=== PATIENT | female | born 1945 | race Caucasian/White ===

== ENCOUNTER → 2016-11-16 | Outpatient (CLI) | payer OTHER ==
[~2016-11-16] MED LIST: ASPCH81X PO; DTRSR4 PO; FLUO20CA35 PO; FLUO40CA8 PO; FURO-85 PO; LOSA25TA18 PO; MAGN400T6 PO; METO-551 PO; METO50TA16 PO; NTRGSL/4 UT; OMEP40CA PO; OXYC-57 PO; POTA10CA28 PO; SIMV40TA2 PO; WARF2TAB PO; ZNT/150 PO
== END | disposition home or self-care (01) ==
LOC: C.RDSM 13:52
PROVIDERS: ATTEND Physical Medicine & Rehabilitation Sports Medicine
DX: M16.0 Bilateral primary osteoarthritis of hip (principal)

== ENCOUNTER → 2017-06-25 | Outpatient (CLI) | payer OTHER ==
[~2017-06-25] MED LIST changes: -OXYC-57 PO; -WARF2TAB PO
--- NOTE | 2017-06-25 11:35 | DIAGNOSTIC IMAGING REPORT ---
C-SPINE ROUTINE 4 OR 5 VIEWS CLINICAL HISTORY: Neck pain. Cervical disc degeneration at C4-C5 level. COMPARISON STUDY: No previous studies for comparison. FINDINGS: There is 3 mm of anterolisthesis of C3 on C4. There is reversal of the normal cervical lordosis. No fracture or suspicious lesion is present. There is moderate to marked disc space scarring at C5-C6 with osteophytosis. Moderate multilevel facet arthrosis is present. Severe narrowing of the right C3-C4 neural foramen is noted. There is moderate bony narrowing of numerous additional bilateral neural foramen. IMPRESSION: 1. No acute cervical spine fracture. 2. Severe degenerative disc disease at C5-C6 with moderate degenerative disc disease at C4-C5 and C6-C7. 3. 3 mm anterolisthesis of C3 on C4 with reversal normal cervical lordosis. 4. Severe narrowing of the right C3-C4 neural foramen. Electronically signed by: Meño Louis M.D. 06/25/2017 11:34 AM Dictated Date/Time: 06/25/2017 11:29 AM
== END | disposition home or self-care (01) ==
LOC: C.RAD 10:53
PROVIDERS: ATTEND Physical Medicine & Rehabilitation
DX: M50.321 Other cervical disc degeneration at C4-C5 level (principal); M50.323 Other cervical disc degeneration at C6-C7 level; M50.31 Other cervical disc degeneration, high cervical region

== ENCOUNTER → 2017-07-09 | Outpatient (CLI) | payer OTHER ==
--- NOTE | 2017-07-09 11:38 | DIAGNOSTIC IMAGING REPORT ---
CERVICAL SPINE MRI HISTORY: CERVICAL SPONDYLOSIS TECHNIQUE: Multiplanar multisequence MRI of the cervical spine was performed without the use of contrast. COMPARISON STUDY: Cervical spine 06/25/2017. FINDINGS: Slight reversal of the normal lordotic curvature. There is 2 mm of anterolisthesis of C3 on C4, unchanged. Moderate disc space narrowing at C4-C5 and C6-C7. Severe disc space narrowing at C5-C6. There are endplate osteophytes within the lower cervical spine. The visualized posterior fossa is unremarkable. The cervical spinal cord demonstrates a normal signal intensity. Prevertebral soft tissues and the C1-C2 interval are intact. No fractures identified. Mild to moderate facet degenerative changes within the mid to lower cervical spine. C2-C3: No significant central canal or neural foraminal narrowing. C3-C4: No central canal narrowing. Moderate right neural foraminal narrowing due to the facet and uncovertebral hypertrophy. C4-C5: Broad-based posterior disc bulge which abuts and slightly deforms the anterior cord. Moderate to severe bilateral neural foraminal narrowing. C5-C6: Broad-based posterior disc bulge which abuts and slightly deforms the anterior cord. Severe right and moderate to severe left neural foraminal narrowing. C6-C7: Small broad-based posterior disc bulge with a small left paracentral focal disc protrusion. This abuts and slightly deforms the left anterior cord. Mild to moderate bilateral neural foraminal narrowing. C7-T1: Tiny broad-based posterior disc bulge without significant central canal or neural foraminal narrowing. IMPRESSION: 1. Multilevel cervical spondylosis as described above most pronounced at the C4-C5, C5-C6, and C6-C7 levels. 2. Multilevel bilateral neural foraminal narrowing most pronounced at the C5-C6 level. 3. Slight reversal of normal lordotic curvature. 4. There is 2 mm of anterolisthesis of C3 on C4. This is likely due to long-standing degenerative change. Electronically signed by: Long Paul M.D. 07/09/2017 11:36 AM Dictated Date/Time: 07/09/2017 11:28 AM
== END | disposition home or self-care (01) ==
LOC: C.MRIBC 09:51
PROVIDERS: ATTEND Physical Medicine & Rehabilitation
DX: M47.892 Other spondylosis, cervical region (principal); M43.12 Spondylolisthesis, cervical region

== ENCOUNTER → 2017-09-13 | Outpatient (CLI) | payer OTHER ==
--- NOTE | 2017-09-13 13:18 | DIAGNOSTIC IMAGING REPORT ---
PELVIS BILATERAL HIP 2 HISTORY: 72 years-old Female B/L HIP PAIN acute bilateral hip pain. Prior right hip arthroplasty COMPARISON: Pelvis and right hip radiographs 11/16/2016 TECHNIQUE: AP view of the pelvis with AP views of the bilateral hips FINDINGS: Pelvic ring appears intact. Advanced discogenic degenerative changes of the imaged lumbar spine. Right hip arthroplasty noted without evidence of hardware complication. Moderate left hip arthritis. No acute fracture or dislocation. IMPRESSION: 1. No acute fracture or dislocation. 2. Right hip arthroplasty noted without evidence of hardware complication. 3. Moderate left hip arthritis. The above report was generated using voice recognition software. It may contain grammatical, syntax or spelling errors. Electronically signed by: Rancho Cho M.D. 09/13/2017 1:17 PM Dictated Date/Time: 09/13/2017 1:16 PM
== END | disposition home or self-care (01) ==
LOC: C.RDSM 11:53
PROVIDERS: ATTEND Physician Assistant
DX: M16.12 Unilateral primary osteoarthritis, left hip (principal); Z96.641 Presence of right artificial hip joint

== ENCOUNTER 2024-08-27 05:21 | Inpatient (IN) ==
--- NOTE | 2024-07-18 15:40 | PAT Medication Instructions ---
Medication Instructions Date of Service July 18, 2024 Home Medications aspirin 81 mg tablet,delayed release (Wade Low Dose Aspirin) 81 mg PO HS furosemide 20 mg tablet 20 mg PO QAM magnesium oxide 400 mg PO HS metoprolol tartrate 50 mg tablet 50 mg PO HS nitroglycerin 0.4 mg sublingual tablet 1 tab sublingual UD PRN Angina potassium chloride 10 mEq capsule,extended release 10 meq PO QAM fluoxetine 20 mg capsule (Prozac) 20 mg PO QAM cetirizine 10 mg tablet (Zyrtec) 10 mg PO QAM diphenhydramine HCl 25 mg capsule (Benadryl) 25 mg PO HS duloxetine 20 mg capsule,delayed release sprinkle 20 mg PO QAM famotidine 20 mg tablet (Pepcid) 20 mg PO BID omega-3 fatty acids 1,200 mg PO HS rosuvastatin 20 mg tablet 20 mg PO HS vitamin B complex 1 cap PO QAM acetaminophen 500 mg tablet (Tylenol Extra Strength) 1,000 mg PO BID PRN Pain aspirin-caffeine 400 mg-32 mg tablet (Anacin) 2 tab PO DAILY PRN Pain coenzyme Q10 100 mg capsule (CoQ-10) 100 mg PO QAM eplerenone 25 mg tablet 25 mg PO QAM losartan 100 mg tablet 100 mg PO QAM metoprolol tartrate 50 mg tablet 75 mg PO QAM omeprazole 20 mg capsule,delayed release 20 mg PO QAM perfluorohexyloctane (PF) 100 % eye drops (Miebo (PF)) 1 drp ophthalmic (eye) BID Continue as directed nitroglycerin 0.4 mg sublingual tablet 1 tab sublingual UD PRN Angina (if needed) ASK your surgeon for instructions aspirin-caffeine 400 mg-32 mg tablet (Anacin) 2 tab PO DAILY PRN Pain STOP taking 2 weeks before surgery omega-3 fatty acids 1,200 mg PO HS coenzyme Q10 100 mg capsule (CoQ-10) 100 mg PO QAM DO NOT take the morning of surgery furosemide 20 mg tablet 20 mg PO QAM potassium chloride 10 mEq capsule,extended release 10 meq PO QAM cetirizine 10 mg tablet (Zyrtec) 10 mg PO QAM vitamin B complex 1 cap PO QAM eplerenone 25 mg tablet 25 mg PO QAM losartan 100 mg tablet 100 mg PO QAM Take morning of surgery With a small sip of water, OTHERWISE NOTHING TO EAT OR DRINK AFTER MIDNIGHT: fluoxetine 20 mg capsule (Prozac) 20 mg PO QAM duloxetine 20 mg capsule,delayed release sprinkle 20 mg PO QAM famotidine 20 mg tablet (Pepcid) 20 mg PO BID acetaminophen 500 mg tablet (Tylenol Extra Strength) 1,000 mg PO BID PRN Pain (if needed) metoprolol tartrate 50 mg tablet 75 mg PO QAM omeprazole 20 mg capsule,delayed release 20 mg PO QAM perfluorohexyloctane (PF) 100 % eye drops (Miebo (PF)) 1 drp ophthalmic (eye) BID Take evening before surgery aspirin 81 mg tablet,delayed release (Wade Low Dose Aspirin) 81 mg PO HS (unless surgeon directed otherwise) magnesium oxide 400 mg PO HS metoprolol tartrate 50 mg tablet 50 mg PO HS diphenhydramine HCl 25 mg capsule (Benadryl) 25 mg PO HS famotidine 20 mg tablet (Pepcid) 20 mg PO BID rosuvastatin 20 mg tablet 20 mg PO HS acetaminophen 500 mg tablet (Tylenol Extra Strength) 1,000 mg PO BID PRN Pain (if needed) perfluorohexyloctane (PF) 100 % eye drops (Miebo (PF)) 1 drp ophthalmic (eye) BID Other Notes If you have any questions please call us at [phone] or [phone] or [phone] or [phone]
--- NOTE | 2024-07-23 12:43 | Anesthesiology Consultation ---
Date of Service July 23, 2024 Assessment & Plan (1) Encounter for pre-operative examination: - Infectious disease screening: Per assessment on 07/23/24: No known recent infectious disease contacts or current infectious disease symptoms. - Outpatient joint assessment: Pt currently scheduled for inpatient pathway. If surgeon requests review for outpatient joint pathway, patient is not recommended candidate for outpatient joint program from anesthesia standpoint based on available information. - Cardiology visit (07/08/24): "Patient describes stable cardiac signs and symptoms, however with regards to preoperative risk stratification, her activity has been limited due to her orthopedic constraints and therefore it was difficult to assess whether she has any angina. She was ongoing therapeutic benefit from her spine surgery that took place in 2021. Prior to consideration of hip replacement, recommend proceeding with a dobutamine stress echocardiogram for further risk stratification. She had a nonischemic response to do dobutamine stress in 2021." > Cardiology addendum: "patient is stable from a Cardiology perspective to proceed with Orthopedic Surgery without further cardiac testing with an estimated low risk of perioperative cardiac complication. She was should remain on her cardiac medications including metoprolol without missed doses.. would recommend minimizing time of aspirin, ideally, would proceed without interruption in her aspirin or perhaps only hold it on the day of surgery given her history of remote percutaneous coronary intervention." - Cardiology note (07/23/24): "Stress test findings stable, okay from a cardiac perspective to proceed with Orthopedic Surgery without further cardiac testing." - Patient acceptable risk for surgery pending surgeon-ordered PCP preop evaluation ([facility], appt 08/06). Chart Review Chart Review: Patient seen in Pre Admission Testing Teaching & Discussion Pre-Anesthesia Teaching/Discussion Notes: Instructed NPO after midnight before surgery,except medications with 15 cc of water. Medication instructions provided according to the PAT guidelines. History Surgery Operation Date: 08/27/24 09:00 Proposed Procedures p Left Total Hip Arthroplasty, Possible Dual Mobility, Possible Cemented Femur - Abhijit Cantrell MD Height/Weight Height: 5 ft 2 in Weight: 95.9 kg Allergies Allergy/AdvReac Type Severity Reaction Status Date / Time oxycodone Allergy Severe Itching Verified 07/18/24 11:42 bacitracin Allergy Mild Rash Verified 07/18/24 11:42 cortisone Allergy Mild Elevated Verified 07/23/24 13:42 BP, panic lisinopril Allergy Mild Cough Verified 07/23/24 13:42 neomycin Allergy Mild Rash Verified 07/18/24 11:42 [From Neosporin ([id number])] polymyxin B Allergy Mild Rash Verified 07/18/24 11:42 [From Neosporin ([id number])] povidone-iodine Allergy Mild Skin Verified 07/23/24 13:42 irritation dobutamine Allergy Itching Verified 07/23/24 15:56 (after DSE) ADHESIVE TAPE AND BANDAIDS Allergy Severe Skin Uncoded 07/23/24 13:42 irritation (with long term care administrator use) Medications Home Medications Medication Instructions Recorded Confirmed Last Taken aspirin 81 mg tablet,delayed 81 mg PO HS 06/24/18 07/18/24 10/22/23 release (Wade Low Dose Aspirin) furosemide 20 mg tablet 20 mg PO [facility] 06/24/18 07/18/24 10/23/23 magnesium oxide 400 mg PO 06/24/18 07/18/24 10/22/23 metoprolol tartrate 50 mg tablet 50 mg PO 06/24/18 07/18/24 10/22/23 nitroglycerin 0.4 mg sublingual 1 tab sublingual UD PRN Angina 06/24/18 07/18/24 Unknown tablet potassium chloride 10 mEq 10 meq PO [facility] 06/24/18 07/18/24 10/23/23 capsule,extended release fluoxetine 20 mg capsule (Prozac) 20 mg PO [facility] 02/14/19 07/18/24 10/24/23 06:40 cetirizine 10 mg tablet (Zyrtec) 10 mg PO [facility] 10/22/23 07/18/24 10/23/23 diphenhydramine HCl 25 mg capsule 25 mg PO 10/22/23 07/18/24 10/22/23 (Benadryl) duloxetine 20 mg capsule,delayed 20 mg PO [facility] 10/22/23 07/18/24 10/17/23 06:40 release sprinkle famotidine 20 mg tablet (Pepcid) 20 mg PO BID 10/22/23 07/18/24 10/24/23 06:40 omega-3 fatty acids 1,200 mg PO 10/22/23 07/18/24 10/22/23 rosuvastatin 20 mg tablet 20 mg PO 10/22/23 07/18/24 10/22/23 vitamin B complex 1 cap PO QAM 10/22/23 07/18/24 10/23/23 acetaminophen 500 mg tablet 1,000 mg PO BID PRN Pain 07/18/24 07/18/24 Unknown (Tylenol Extra Strength) aspirin-caffeine 400 mg-32 mg 2 tab PO DAILY PRN Pain 07/18/24 07/18/24 Unknown tablet (Anacin) coenzyme Q10 100 mg capsule 100 mg PO QAM 07/18/24 07/18/24 Unknown (CoQ-10) eplerenone 25 mg tablet 25 mg PO QAM 07/18/24 07/18/24 Unknown losartan 100 mg tablet 100 mg PO QAM 07/18/24 07/18/24 Unknown metoprolol tartrate 50 mg tablet 75 mg PO QAM 07/18/24 07/18/24 Unknown omeprazole 20 mg capsule,delayed 20 mg PO QAM 07/18/24 07/18/24 Unknown release perfluorohexyloctane (PF) 100 % 1 drp ophthalmic (eye) BID 07/18/24 07/18/24 Unknown eye drops (Miebo (PF)) Past Medical History Medical History Anxiety CAD (coronary artery disease) Stent (2003) Degenerative joint disease Depression Diastolic HF (heart failure) Follows with Dr. Goodrich Esophageal dysmotility Hx dilation in past Frequent PVCs GERD (gastroesophageal reflux disease) H/O gastric ulcer 1966, no current issues Hearing deficit History of COVID-19 ~2020: mild flu-like symptoms > resolved Hx of melanoma of skin Left hip with surgical removal Hx-TIA (transient ischemic attack) Hx multiple TIAs (most recent early 2022) Hyperlipidemia Hypertension Incontinence of urine Chronic Osteoarthritis Sleep apnea CPAP (compliant) Spinal stenosis Spondylitis Exercise / Class Metabolic Activity III < 4 Walking/Shop/Light housework (uses cane) Past Family History Family History Sister Family history of diabetes mellitus 2 SISTERS Family/Other Family history of diabetes mellitus MATERNAL AUNTS Other No family history of adverse response to anesthesia Past Surgical History Surgical History H/O arthroscopy of left knee H/O bilateral salpingo-oophorectomy H/O cystoscopy H/O mastoidectomy H/O melanoma excision H/O total hysterectomy History of cardiac cath Multiple, most recent 2003 History of cataract surgery History of cholecystectomy History of colonoscopy History of dilatation and curettage History of esophageal dilatation History of esophagogastroduodenoscopy (EGD) History of heart artery stent 2004 > stent x1 History of lumbar fusion History of tonsillectomy and adenoidectomy Hx of wisdom tooth extraction Nausea and vomiting after administration of anesthetic agent Status post right hip replacement Past Anesthesia History No Hx of Anesthesia Complications and No Family Hx of Anesthesia Complications History of PONV History of PONV and Hx of Motion Sickness (Rare) Social History Smoking Status: Former smoker Do You Dip or Chew Tobacco: No Smoking End Date: Quit Hx Alcohol Use: No Hx Substance Use: No substance use type: does not use Review of Systems Occasional palpitations. r/t known hx of PVCs (flares with stress). Patient denies chest pain, shortness of breath, fever, chills, cough, wheezing. Physical Exam Vital Signs BP 136/74 P 72 TEMP 98.1 SP02 98%RA RESP 16 Physical Full cervical extension range of motion. Full TMJ range of motion. TMD 2.5 finger breaths (small chin) Mallampati Score I Dentition: intact, + crowns (sides) Lungs: clear throughout to auscultation Cardiac: regular rate and rhythm, no murmurs noted Spine: normal Carotid arteries: negative bruit Extremities: no LE edema Lab Results Anesthesia Preop Results Results Anesthesia Widget: WBC 5.37 K/ul (4.8-10.8) 07/23/24 Hgb 14.6 g/dl (12.0-16.0) 07/23/24 Hct 43.6 % (37.0-47.0) 07/23/24 Plt 199 K/uL (130-400) 07/23/24 Na 141 mmol/L (136-145) 07/23/24 K 4.6 mmol/L (3.5-5.1) 07/23/24 Cl 104 mmol/L (98-107) 07/23/24 CO2 31 mmol/L (21-32) 07/23/24 BUN 32 mg/dl (6-23) H 07/23/24 Creat 1.00 mg/dl (0.6-1.2) 07/23/24 Glucose Level 124 mg/dl (70-99(Fasting)) H 07/23/24 PT 10.5 Seconds (9.0-12.0) 07/23/24 PTT 25 Seconds (21-31) 07/23/24 INR 1.0 (0.9-1.1) 07/23/24 Urine Color Dark Yellow 07/23/24 Urine Appearance Clear (Clear) 07/23/24 Urine pH 5.0 (4.5-7.5) 07/23/24 Urine Specific [place] 1.017 (1.000-1.030) 07/23/24 Urine Protein Negative (Negative) 07/23/24 Urine Glucose (UA) Negative (Negative) 07/23/24 Urine Ketones Negative (Negative) 07/23/24 Urine Blood Negative (Negative) 07/23/24 Urine Nitrite Positive (Negative) A 07/23/24 Urine Bilirubin Negative (Negative) 07/23/24 Urine Urobilinogen Negative (Negative) 07/23/24 Urine Leukocyte Esterase 2+ (Negative) H 07/23/24 Urine WBC (Auto) 11-20 /hpf (0-5) H 07/23/24 Urine RBC (Auto) 0-2 /hpf (0-2) 07/23/24 Urine Hyaline Casts (Auto) 0-2 /lpf (0-2) 07/23/24 Urine Epithelial Cells (Auto) 0-2 /hpf (0-2) 07/23/24 Urine Bacteria (Auto) 3+ (None Seen) H 07/23/24 Blood Type A Positive 07/23/24 Antibody Screen NEGATIVE 07/23/24 Testing Laboratory Results [place] with surgeon's office aware of abnormal UA* Electrocardiogram Date: 07/08/24 SR with first degree AVB at 62bpm. "Otherwise normal ECG" No significant change compared to 12/28/2021 per slab worker comparison. Chest X-Ray Date: 07/23/24 FINDINGS: Cardiac silhouette is upper limits of normal in size. Coronary arterial stenting. No pneumothorax, pleural effusion, airspace consolidation or pulmonary edema. Mild mid thoracic dextroscoliosis. Right upper quadrant surgica l clips. IMPRESSION: No acute process. Stress Test Date: 07/21/24 No echocardiographic evidence of stress-induced ischemia at 81% Of the maximal, age-predicted heart rate.The low heart rate response to stress reduces the sensitivity of this test for the detection of coronary artery disease or ischemia. There was attenuated heart rate response to exercise likely related to medications. Rest study: LVEF 55-59%. Mildly increased concentric LV wall thickness. Grade 1 diastolic dysfunction. Mild AV sclerosis. Mild TR. No evidence of pulmonary hypertension. Borderline enlarged ascending aorta, 3.7 cm.
[2024-08-27] MEDS: LR 500ML BOLUS, THEN 15ML/HR IV SCH (06:17)
[2024-08-27] MEDS: LR 60ML/HR IV SCH (06:17)
[2024-08-27] MEDS ORDERED: ROPIVACAINE 0.5% 5 MG/ML 30 ML VIAL ONE (06:22)
--- NOTE | 2024-08-27 06:30 | History & Physical Bridge Note ---
Date of Service August 27, 2024 History & Physical Bridge Note I have examined the patient, reviewed the History & Physical and in the interval since the performance of the History & Physical I have noted the following changes of clinical significance: consent and site verified. reviewed meds and risks . no changes noted
[2024-08-27] MEDS ORDERED: MIDAZOLAM HCL 1 MG/ML 2ML VIAL ONE (06:38)
[2024-08-27] MEDS ORDERED: fentaNYL citrate PF 100 MCG/2 ML VIAL ONE (06:38)
[2024-08-27] MEDS ORDERED: fentaNYL citrate PF 100 MCG/2 ML VIAL IV PRN (06:39)
[2024-08-27] MEDS ORDERED: HYDROmorphone INJ 1 MG/ML SYRINGE IV PRN (06:39)
[2024-08-27] MEDS ORDERED: ePHEDrine sulfate 50 MG/ML AMP IV PRN (06:39)
[2024-08-27] MEDS ORDERED: ATROPINE SULFATE 0.1 MG/ML 10ML SYR IV PRN (06:39)
[2024-08-27] MEDS ORDERED: ePHEDrine sulfate 50 MG/ML AMP ONE (06:40)
[2024-08-27] MEDS: TRANEXAMIC ACID 1,000 MG **IV Pre-op IV SCH (06:43)
[2024-08-27] MEDS ORDERED: PROPOFOL IV EMULSION 10 MG/ML 20 ML VIAL IV ONE ×3 (06:45→08:01)
[2024-08-27] MEDS: ceFAZolin 2000MG 2,000 MG/15 ML SYR IV SCH ×2 (06:57→14:13)
[2024-08-27] MEDS ORDERED: PHENYLEPHRINE 100MCG/ML 5ML SYR ONE ×2 (07:20→08:18)
[2024-08-27] MEDS ORDERED: WATER, STERILE FOR INJ 10 ML VIAL ONE (07:20)
[2024-08-27] MEDS ORDERED: DEXAMETHASONE SOD INJ 4 MG/ML VIAL ONE (07:22)
[2024-08-27] MEDS ORDERED: ONDANSETRON INJ 2 MG/ML 2 ML VIAL ONE (07:22)
[2024-08-27] MEDS: ORTHO JOINT ANESTHETIC ONE (07:46)
[2024-08-27] MEDS: TRANEXAMIC ACID 1,000 MG **IV Intra-op IV SCH (08:28)
[2024-08-27] MEDS: ROPIV 0.5% 246mg, Ketorolac 30mg, EPINEPHrine 0.5mg in NSS INFIL SCH (08:28)
--- NOTE | 2024-08-27 08:58 | Post Operative Brief Note ---
Immediate Post Op Note Date of Surgery August 27, 2024 Pre & Post Diagnosis Operation Date: 08/27/24 07:00 <No data on this case meets the specified criteria> Osteoarthritis left hip pre and postop diagnosis same I identified the patient and participated in the time-out.: Yes Procedure Operation Date: 08/27/24 07:00 <No data on this case meets the specified criteria> Noncemented left total replacement Surgeon Abhijit Cantrell MD Locomotive Engineer Diesel Yonny/Bao Estimated Blood Loss 150 Findings Consistent with Post-Op Diagnosis Severe osteoarthritis extreme BMI Fluids See anesthesia report Complications None
--- NOTE | 2024-08-27 09:03 | Operative Report ---
Post Operative Report Pre & Post Diagnosis Operation Date: 08/27/24 07:00 <No data on this case meets the specified criteria> Pre and postop diagnosis same as osteoarthritis left hip with large BMI patient should use a modifier 25 for the extreme size of the patient I identified the patient and participated in the time-out.: Yes Procedure Operation Date: 08/27/24 07:00 <No data on this case meets the specified criteria> Noncemented left total replacement Surgeon Abhijit Cantrell MD Stud Setter Yonny/Bao Estimated Blood Loss 150 Findings Consistent with Post-Op Diagnosis Severe disease high BMI Fluids See anesthesia report Specimens Bone pathology Drains None Complications None Indications Severe pain for years x-rays are marked osteoarthritis left hip Description of Procedure After the patient was appropriate notified site verified consent verified antibiotics confirmed as being given patient was carefully positioned in the right lateral decubitus position. Again this is a very large patient with high BMI and moderate appropriate modifier for this should be utilized. This required both the fellow and the PA for appropriate retraction based on her size. Posterior process of the hip was then made. The largest retractors were required just for the subcutaneous tissue. Fascia was then opened and then retractors placed carefully protect the sciatic nerve. Double been retractors then placed over the femoral neck proximally and the Cobra distally and the capsule and short external rotators were appropriately released. They were p reserved. The hip was then dislocated carefully. Femoral neck was then resected. Leg was then placed in extension and neutral rotation anterior [id number] retractor placed inferior retractor placed after the capsule was teed little bit more care taken to protect the nerves. Labrum was then excised the serial reaming was then carried up to 48 and 48 cup impacted in appropriate anteversion inclination. Trial liner was seated after 6.5 x 25 screw was placed with excellent purchase. Digitally 1-1 could not feel the drill bit over the depth gauge when this was performed. The cuff fixation was excellent. The femur was then flexed and internally rotated and the proximal femur prepared with the ammonia box operator canal finder lateralizing rasp and serial broaching up to a size 2 trial reduction with a +5 was excellent. Leg lengths were equal. The hip range of motion was stable in all planes. This included flexion internal rotation to 90 degrees and 45 degrees of respectively. The hip was then checked for leg lengths and everything was good the hip was then dislocated all terminating trial limits were removed the wound was then irrigated with Pulsavac elevated Betadine and then cleaned out again with Pulsavac the whole limb later seated permanent liner seated permanent stem and head seated the hip was reduced and was excellent stability in all planes leg lengths were excellent. Wound was then irrigated with Pulsavac 1 final time and the short external rotators and capsule closed with #2 Vicryl the fascia with #2 Vicryl deep fat with #2 Vicryl superficial fat with 2-0 Vicryl the skin with clips and retention sutures were placed based again on the patient's size with 0 Prolene. Patient will have a Prevena placed tomorrow after the dressing is changed. EBL was 150 cc cryst alloid per anesthesia bone pathology pending. Summary of implants size 48 acetabular shell sector cup 25 x 6.5 screw dome cover 32 x 48 neutral liner 2 standard AC Tis stem 32+5 ceramic head. Enthuseuy J&J implants. I attest to the content of the Intraoperative Record and any orders documented therein. Any exceptions are noted below.
[2024-08-27] MEDS ORDERED: ONDANSETRON INJ 2 MG/ML 2 ML VIAL IV PRN (09:04)
[2024-08-27] MEDS ORDERED: METOCLOPRAMIDE HCL INJ 5 MG/ML 2 ML VIAL IV PRN (09:04)
[2024-08-27] MEDS ORDERED: bisacodyL 10 MG SUPP PR PRN (09:04)
[2024-08-27] MEDS ORDERED: NALOXONE HCL 0.4 MG/1 ML VIAL/CARP IV PRN (09:04)
[2024-08-27] MEDS ORDERED: diphenhydrAMINE 50 MG/ML VIAL IV PRN (09:04)
[2024-08-27] MEDS ORDERED: HYDROmorphone INJ 0.5 MG/0.5 ML SYR IV PRN (09:04)
[2024-08-27] MEDS ORDERED: MAGNESIUM HYDROXIDE SUSP 30 ML UDC PO PRN (09:04)
[2024-08-27] MEDS ORDERED: VANCOMYCIN CONSULT ACTIVE PRN (09:04)
[2024-08-27] MEDS ORDERED: ALUMINUM/MAGNESIUM SUSP 30 ML UDC PO PRN (09:04)
--- NOTE | 2024-08-27 09:04 | Orthopedic Progress Note ---
Date of Service August 27, 2024 Orthopedic Progress Note Patient underwent left total replacement. She tolerated procedure well. She denies chest pain shortness of breath fever chills nausea vomiting or headache. X-ray pending. Family contacted. Continue with care pathway. Get out of bed later today based on her high risk for comorbidities such as DVT PE and pneumonia. This was discussed with her preop she states she understands.
--- NOTE | 2024-08-27 09:04 | Operative Report ---
Post Operative Report Pre & Post Diagnosis Operation Date: 08/27/24 07:00 Pre-Op Diagnosis: Left Hip Osteoarthritis Post-Op Diagnosis: Left Hip Osteoarthritis I identified the patient and participated in the time-out.: Yes Procedure Operation Date: 08/27/24 07:00 Actual Procedures p Left Total Hip Arthroplasty, Uncemented(Left) - Abhijit Cantrell MD Surgeon Abhijit Cantrell MD Lacing Presser Yonny/Bao Estimated Blood Loss 150 Findings Consistent with Post-Op Diagnosis Specimens femoral head Description of Procedure I was present during the entire case assisting with positioning, prepping, draping, wound retraction, wound closure and dressing application. Fellow also present. I served as an extra set of hands during the case. Please see Dr. Cantrell procedure note for specifics of the case. I attest to the content of the Intraoperative Record and any orders documented therein. Any exceptions are noted below.
--- NOTE | 2024-08-27 09:05 | Discharge Summary ---
Date of Service August 28, 2024 Admission HPI Per Admitting Provider Severe left hip pain osteoarthritis left hip Principal Diagnosis Osteoarthritis left hip Discharge Data Allergies Allergy/AdvReac Type Severity Reaction Status Date / Time adhesive tape Allergy Severe Unknown Verified 08/27/24 06:01 oxycodone Allergy Severe Itching Verified 08/27/24 06:01 bacitracin Allergy Mild Rash Verified 08/27/24 06:01 neomycin Allergy Mild Rash Verified 08/27/24 06:01 [From Neosporin ([id number])] polymyxin B Allergy Mild Rash Verified 08/27/24 06:01 [From Neosporin ([id number])] cortisone AdvReac Mild Elevated Verified 08/27/24 06:01 BP, panic lisinopril AdvReac Mild Cough Verified 08/27/24 06:01 Vaccinations None Consultations None Procedures Performed Operation Date: 08/27/24 07:00 <No data on this case meets the specified criteria> Noncemented left total replacement Ordered Studies Bone pathology x-rays Hospital Course (1) History of left hip replacement: Care pathway for total replacement with discharge tomorrow if she does well overnight with home services PT and nursing. Total Time Total Time Spent Total Time Spent (In Minutes): 5 Discharge Plan Discharge Items Patient Disposition: Home - Home Health Services Reason For Visit: Left Hip Osteoarthritis Discharge Diagnosis: Osteoarthritis left hip status post left total replacement Activity: Per Instructions section Lifting: Wait until after follow-up appointment Bathing: Keep incision dry Sexual Activity: Wait until after follow-up appointment Exercise/Sports: Wait until after follow-up appointment Driving/Machine Use: No driving until cleared by Dr. Cantrell Weightbearing: Full weightbearing Non-emergency contact: Surgeon Call non-emergency contact if: you have any medication questions, your pain is not controlled, your temperature is above 101, your wound has increased redness, your wound has increased drainage and your wound pain has increased Follow-up/Referrals: Saman Almanza, [Primary Care Provider] - Diet: Heart Healthy Addtl Attending Provider Instructions: New Medicine: * You will likely be taking one or more of these medicines: 1. Tramadol - Take, as directed, when you need it, every four to six hours to control your pain. 2. Iron Sulfate - Take 1x each day for the month after surgery to help you replace the blood lost during surgery. 3. Eliquis - Thins your blood to lessen the chance of forming a blood clot. * The most common side effects of pain medicine and iron are nausea and constipation. If nausea or constipation is too much of a problem or if you have any questions about your new medicines or doses, call [facility] at . We will try to help you manage these issues. "VERY IMPORTANT TO READ AND REVIEW" Blood Clots and Blood Thinning Medicine: * You are given Eliquis during the immediate post-operative period to lessen the risk of blood clots forming in your legs and/or lungs. It is usually given for 4 weeks after surgery. Pain: * The immediate post-operative period after hip replacement surgery is often quite painful. * You are given a prescription for pain medicine. You should take it, as directed, when you need it, especially before physical therapy and before going to bed. Pain that interferes with sleep is very common and can last several months. * You will likely need pain medicine for the first two to four weeks. It will not stop all of the pain. The pain will lessen and as you feel better, you may change to milder pain medicine such as Tylenol. * The most common side effects of pain medicine are nausea and constipation, so don't take more than you need. Physical Therapy: * Follow the "Hip Precautions Instructions." * In some cases, the social welfare clerk at the hospital will arrange to have a therapist come to your house for the first couple of weeks to help you learn these skills. * You need to practice on your own or with the help of a family member as needed. * When you learn these skills, most of the therapy can be done on your own. Home Exercise: * You were shown a series of exercises in the hospital. Do these exercises three to four times each day including the exercises you were shown in physical therapy. Walking: * Get up and walk several times each day. For the first four weeks, try not to stand or walk for more than one hour at a time. If you do stand or walk for more than one hour, you will not hurt anything, but your leg will likely swell. * As you feel comfortable, you may change from the walker or crutches to a cane and then to independent walking. SELF CARE INSTRUCTIONS AFTER TOTAL HIP REPLACEMENT Until the incision and soft tissues around your hip have healed, there is a possibility that the hip prosthesis could dislocate. A. Observe the following precautions to prevent dislocation: 1. Don't bend your hip greater than 90 degrees. 2. Avoid crossing your legs or ankles while standing or lying. 3. Sit with your feet placed 6 inches apart. 4. When sitting, keep your knees below your hips. Sit on a firm surface, avoid deep, soft chairs and couches. Use an elevated toilet seat in the bathroom. 5. Don't bend over at the waist. Use a long handled shoehorn and a sock aid to help you put on your shoes and socks. A electroneurodiagnostic technician can help you molded goods spot picker objects that are too high or too low to reach. 6. Keep car riding to a minimum for at least one month after surgery. B. Your balance may be shaky for a while. Use crutches or a walker until directed by your doctor. C. Use hand rails when walking on stairs. D. Wear low heeled shoes with non-slip soles. E. Be sure that your floors are free of things that could trip you - throw rugs, electrical cords, small objects. Avoid wet and waxed floors, especially with crutches and canes. F. Try to walk several times a day with rest periods between. G. Continue with all the exercises taught to you in the hospital. Again, make walking a part of your daily routine. VERY IMPORTANT TO READ AND REVIEW A. Take Eliquis (blood thinning medication) as directed by your doctor. B. There are a few signs you need to watch for after you are home. If you notice any of the followin. Increased severe hip pain. Some pain is expected especially when you exercise. 2. Increased swelling in your leg or knee; pain or swelling of the calf muscle in either lower leg. 3. Any fluid drainage from the incision. 4. Shortness of breath or chest pain. TEDs/Elastic Stockings: * The white elastic stockings help limit swelling and prevent blood clots from forming in your legs. The more you wear them, the more they work. * Wear them for six weeks. Prevention of Infection: * Take antibiotics one hour before any dental cleaning, dental work, urological procedure, gastrointestinal procedure or any invasive surgery in order to prevent your new joint from getting infected. * You may get the antibiotics from the doctor performing the procedure or we will call in a prescription to the pharmacy of your choice. Call the office for a prescription at least 2 days prior to your appointment. Diet: * You may return to previous diet. Things to Watch For: * Drainage from the incision site that occurs more than one week after your surgery. * Severely increased leg pain or swelling. * Increased redness at the incision site. * Fever above 101 degrees Fahrenheit. * Unusual chest pain or shortness of breath. * Unusual pain or burning with urination. MEDICATIONS: * Please take your prescriptions as instructed at your pre-op appointment a nd/or see medication discharge instructions listed above. * If concerns develop, call your physician's office at . SPECIAL CARE INSTRUCTIONS: * Ice/Elevate as instructed. * Keep dressing clean, dry, intact. * Your surgical extremity may be discolored due to prepping agents used on the skin. A bluish-green tint is a normal variant and should not cause alarm. Call your doctor at [phone] if: * Temperature above 101 degrees * Pain not relieved by pain medicine ordered * There is increased drainage or redness from any incision * You have any unanswered questions, problems or concerns. FOLLOW UP VISIT: * If not already scheduled, please call the office at to schedule a follow-up appointment. Pending Studies at Discharge: Yes Studies:: bone pathology Stand-Alone Forms: [employer], Smoking Cessation Medications and DC Order Prescriptions: No Action potassium chloride 10 mEq Capsule, Extended Release 10 meq PO QAM aspirin [Wade Low Dose Aspirin] 81 mg Tablet,Delayed Release (Dr/Ec) 81 mg PO HS metoprolol tartrate 50 mg Tablet 50 mg PO HS nitroglycerin 0.4 mg Tablet, Sublingual 1 tab Sublingual UD PRN (Reason: Angina) furosemide 20 mg Tablet 20 mg PO QAM magnesium oxide 400 mg Capsule 400 mg PO HS fluoxetine [Prozac] 20 mg Capsule 20 mg PO QAM famotidine [Pepcid] 20 mg Tablet 20 mg PO BID cetirizine [Zyrtec] 10 mg Tablet 10 mg PO QAM diphenhydramine HCl [Benadryl] 25 mg Capsule 25 mg PO HS vitamin B complex Capsule 1 cap PO QAM omega-3 fatty acids Capsule 1,200 mg PO HS rosuvastatin 20 mg Tablet 20 mg PO HS duloxetine 20 mg Capsule, Delayed Rel Sprinkle 20 mg PO QAM metoprolol tartrate 50 mg Tablet 75 mg PO QAM omeprazole 20 mg Capsule,Delayed Release(Dr/Ec) 20 mg PO QAM losartan 100 mg Tablet 100 mg PO QAM eplerenone [Inspra] 25 mg Tablet 25 mg PO QAM coenzyme Q10 [CoQ-10] 100 mg Capsule 100 mg PO QAM Miebo (PF) 100 % Drops 1 drp OPHTHALMIC (EYE) BID acetaminophen [Tylenol Extra Strength] 500 mg Tablet 1,000 mg PO BID PRN (Reason: Pain) Anacin 400-32 mg Tablet 2 tab PO DAILY PRN (Reason: Pain) Discharge Orders: Discharge Order (Routine); Ordered 08/28/24 Ordered By: Abhijit Cantrell Admission Data Admit Date/Time: 08/27/24 09:04 Attending Provider: Abhijit Cantrell Admit Provider: Abhijit Cantrell Primary Care Provider: Saman Almanza
[2024-08-27] MEDS ORDERED: ASPIRIN CAFFEINE PO PRN (09:08)
[2024-08-27] MEDS ORDERED: NITROGLYCERIN SL 0.4 MG/TAB TAB SL PRN (09:08)
[2024-08-27] MEDS ORDERED: ACETAMINOPHEN 500 MG TAB PO PRN (09:08)
--- NOTE | 2024-08-27 09:09 | Operative Report ---
Post Operative Report Pre & Post Diagnosis Operation Date: 08/27/24 07:00 Pre-Op Diagnosis: Left Hip Osteoarthritis Post-Op Diagnosis: Left Hip Osteoarthritis I identified the patient and participated in the time-out.: Yes Procedure Operation Date: 08/27/24 07:00 Actual Procedures p Left Total Hip Arthroplasty, Uncemented(Left) - Abhijit Cantrell MD Surgeon Abhijit Cantrell MD Relay Repairer Yonny/Bao Estimated Blood Loss 150 Findings Consistent with Post-Op Diagnosis Specimens Femoral head Description of Procedure The patient was brought to the operative suite where she underwent anesthesia. She was positioned in the right lateral decubitus position. Left lower extremity was prepped and draped in the usual sterile fashion. A surgical timeout was performed. Patient underwent a left total hip arthroplasty, please see Dr. Cantrell's operative report for full details. I was present assisted with patient positioning, limb positioning, soft tissue retraction, hardware placement, wound closure, postoperative dressing placement. Patient was awakened and taken to the recovery room in stable condition. I attest to the content of the Intraoperative Record and any orders documented therein. Any exceptions are noted below.
--- NOTE | 2024-08-27 09:26 | XRay Report ---
XR pelvis 1-2V routine CLINICAL HISTORY: S/P L HALLIE COMPARISON: Left hip radiographs July 14, 2024. FINDINGS: Alignment of the total left hip arthroplasty is anatomic. There is no periprosthetic fract ure or unexpected radiopaque foreign bodies. There is an acetabular screw and skin franck. Right hip arthroplasty is intact. IMPRESSION: Expected findings following total left hip arthroplasty. ACT 112: Negative or not required by law. Electronically signed by: Meño Louis M.D. 08/27/2024 9:25 AM
[2024-08-27] MEDS: ONDANSETRON INJ 2 MG/ML 2 ML VIAL IV PRN (09:30)
[2024-08-27] MEDS: PROMETHAZINE HCL 6.25 MG in SODIUM CHLORIDE 0.9% 50 ML IV PRN (10:06)
[2024-08-27] MEDS: PROMETHAZINE HCL INJ 25 MG/ML 1 ML VIAL ONE (11:02)
[2024-08-27] MEDS: KETOROLAC TROMETHAMINE 15 MG/ML VIAL IV SCH (12:22)
[2024-08-27] MEDS: VANCOMYCIN HCL 1,500 MG in SODIUM CHLORIDE 0.9% 500 ML IV ONE (12:22)
[2024-08-27] MEDS: EPLERENONE 25MG PO SCH (14:11)
[2024-08-27] MEDS: ACETAMINOPHEN 500 MG TAB PO SCH (14:13)
[2024-08-27] MEDS: [UNRECOGNIZED DRUG - OTHER] OP SCH (14:13)
[2024-08-27] MEDS: traMADol HCL 50 MG TABLET PO PRN (15:42)
[2024-08-27 20:02] VITALS: TEMP 98.2
[2024-08-27] MEDS: ROSUVASTATIN CALCIUM 20 MG TAB PO SCH (20:08)
[2024-08-27] MEDS: METOPROLOL TARTRATE 50 MG TAB PO SCH (20:08)
[2024-08-27] MEDS: DOCUSATE SODIUM 100 MG CAP PO SCH (20:08)
[2024-08-27] MEDS: FAMOTIDINE 20 MG TAB PO SCH (20:08)
[2024-08-27] MEDS: ASPIRIN 81 MG ECTAB PO SCH (20:08)
[2024-08-27] MEDS: MAGNESIUM OXIDE 400 MG TAB PO SCH (20:08)
[2024-08-27] MEDS: SENNA 8.6 MG TAB PO SCH (20:09)
[2024-08-27] MEDS: OMEGA-3 (PURIFIED FISH OIL) 1 GM CAP PO SCH (20:09)
[2024-08-27] MEDS ORDERED: diphenhydrAMINE Capsule 25 MG CAP PO SCH (21:00)
--- OUTSIDE RECORDS SUMMARY | 2024-08-27 21:00 | External Medical Summary | Summary of Care ---
Author Name Unknown Organization [facility] Address [address] [place] [address] Phone [phone] Care Team Providers Care Electronics Mechanic Name Role Phone Saman Almanza DO Primary Care Provider [phone] Reason for Visit * Reason Comments eRx-Medication Refill Encounter Details Date Type Department Care Team (Late st Contact Info) Description 08/12/2024 Refill Cardiology, [facility] [address] [place] [address] Jaspal Finley, [address] [place] [place] [phone] HTN, goal below 140/90; Diastolic dysfunction; Coronary artery disease involving [place] coronary artery of [place] heart without angina pectoris Allergies Active Allergy Reactions Criticality Noted Date Comments Adhesive Tape Itching Low 01/02/2001 Irritate skin Bacitracin Itching Low 01/02/2001 Irritate skin Cortisone Hypertension 05/26/2016 Diazepam Itching 02/17/2022 Severe systemic itch Dobutamine Itching 07/21/2024 Neosporin Itching Low 01/02/2001 Irritate Skin Oxycodone Itching 02/17/2022 Severe systemic itch Polymyxin B Itching Low 11/01/2023 Lisinopril Cough 11/12/2014 documented as of this encounter (statuses as of 08/14/2024) Medications Medication Sig Dispensed Refills Start Date End Date Status NITROGLYCERIN 0.4 MG SL SUBLIndications:Pal pitations,Coronary atherosclerosis of [place] coronary artery 1 every 5 min as needed with chest pain up to 3 doses in 15 minutes 20 Tab 3 2 Active ASPIRIN 81 MG PO TABS Take 1 Tablet by mouth at bedtime. Active CPAP every night at bedtime. Active [place]-3 1000 MG Oral Capsule Take by mouth. Active Acetaminophen 500 MG Oral Tablet (Tylenol) Take 1 Tablet by mouth. 2 Active ZyrTEC Allergy 10 MG Oral Capsule (Cetirizine HCl) Take 1 Capsule by mouth in the morning. Active CoQ10 100 MG Oral Capsule Take by mouth . Active B Complex 50 Oral Tablet Take by mouth. Active diphenhydrAMINE HCl 25 MG Oral Tablet Take 1 Tablet by mouth every 6 hours as needed for Itching. Active Hydrocortisone 2.5 % External Ointment Apply to groin 1-2 times daily as needed for flares 60 g 2 2 Active Furosemide 20 MG Oral Tablet (Lasix)Indications: HTN, goal below 140/90,Dyslipidemia , goal LDL below 70,NOVA (dyspnea on exertion),Preoperat lalita cardiovascular examination,Coronar y artery disease involving [place] coronary artery of [place] heart without angina pectoris One tablet by mouth daily 90 Tablet 3 3 Active Magnesium Oxide 400 240 MG Oral Packet (Magnesium Oxide) Take 400 mg by mouth every night at bedtime. Active Omeprazole 20 MG Oral Tablet Delayed Release Take 1 Tablet by mouth in the morning. 30 Tablet 12 4 Active Ciclopirox 8 % External Solution Apply over nail and surrounding skin. Apply daily over previous coat. After seven (7) days, may remove with alcohol and continue cycle. 6.6 mL 5 4 Active Rosuvastatin Calcium 20 MG Oral Tablet (Crestor)Indication s:Dyslipidemia, goal LDL below 100 Take 1 Tablet by mouth in the morning. 90 Tablet 3 4 Active Metoprolol Tartrate 50 MG Oral Tablet (Lopressor)Indicati ons:Palpitations,HT N, goal below 140/90 TAKE ONE AND ONE-HALF TABLET BY MOUTH EVERY MORNING AND TAKE ONE TABLET EVERY EVENING 225 Tablet 3 4 Active Amoxicillin 500 MG Oral Capsule (Amoxil) TAKE 4 CAPSULE BY MOUTH NEEDED FOR OTHER ( DENTAL VISIT). 4 Capsule 4 Active Famotidine 20 MG Oral Tablet (Pepcid)Indications :Gastroesophageal reflux disease without esophagitis TAKE ONE TABLET BY MOUTH IN THE MORNING AND ONE TABLET BEFORE BEDTIME 180 Tablet 2 4 Active Losartan Potassium 100 MG Oral Tablet (Cozaar)Indications :HTN, goal below 140/90 TAKE 1 TABLET BY MOUTH EVERY MORNING 90 Tablet 2 4 Active FLUoxetine HCl 20 MG Oral Capsule (PROzac)Indications :Moderate episode of recurrent major depressive disorder (HCC) TAKE 1 CAPSULE BY MOUTH ONCE DAILY 90 Capsule 2 4 Active DULoxetine HCl 20 MG Oral Capsule Delayed Release Particles (Cymbalta)Indicatio ns:Generalized osteoarthritis of multiple sites TAKE 1 CAPSULE BY MOUTH EVERY MORNING. DO NOT CUT, CRUSH, OR CHEW. 30 Capsule 5 4 Active Eplerenone 25 MG Oral Tablet (Inspra)Indications :Diastolic dysfunction,HTN, goal below 140/90 Take 1 Tablet by mouth in the morning. 90 Tablet 1 4 Active Miebo 1.338 GM/ML Ophthalmic Solution Instill 1 Drop into both eyes 3 times a day as needed. 4 Active Potassium Chloride ER 10 MEQ Oral Tablet Extended ReleaseIndications: HTN, goal below 140/90,Diastolic dysfunction,Coronar y artery disease involving [place] coronary artery of [place] heart without angina pectoris Take 1 Tablet by mouth in the morning. With food. 90 Tablet 3 4 Active Potassium Chloride ER 10 MEQ Oral Tablet Extended ReleaseIndications: HTN, goal below 140/90,Diastolic dysfunction,Coronar y artery disease involving [place] coronary artery of [place] heart without angina pectoris Take 1 Tablet by mouth in the morning. With food. 90 Tablet 4 08/14/20 24 Discontinued documented as of this encounter (statuses as of 08/14/2024) Active Problems Problem Noted Date Diagnosed Date History of melanoma in situ 08/22/2021 Moderate episode of recurrent major depressive d isorder 02/05/2019 Cervicalgia 05/16/2018 Obesity, Class II, BMI 35-39.9, isolated (see ac tual BMI) 02/07/2018 History of melanoma 10/30/2017 Edema 02/10/2015 Diastolic dysfunction 04/27/2014 GERD (gastroesophageal reflux disease) 4 Dyslipidemia, goal LDL below 70 09/04/2012 Cerebrovascular disease 04/25/2012 DAVID on CPAP 05/19/2010 Overview: APAP 8-12 [facility] HTN, GOAL BELOW 140/90 08/26/2009 Overview: Modified per HTN protocol #16. CORONARY ATHEROSCLER. 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 documented as of this encounter (statuses as of 08/14/2024) Resolved Problems Problem Noted Date Diagnosed Date Resolved Date Hypertensive kidney disease, stage III 08/05/2018 02/05/2019 Kidney disease, chronic, sta ge III (GFR 30-59 ml/min) 02/26/2018 08/23/2018 Overview: Per CKD protocol #1 ADVANCE DIRECTIVE INFORMATION 08/01/2016 08/11/2024 Overview: Yes, Patient instructed to provide copy of advance directive for provider to review and to be scanned into Electronic Medical Record Diverticulosis of large inte mike without hemorrhage 11/26/2015 10/30/2017 Diastolic HF (heart failure) 04/08/2014 09/24/2016 Diastolic HF (heart failure) 04/08/2014 09/24/2016 Chest pain 02/04/2014 08/18/2015 Kidney disease, chronic, sta ge III (GFR 30-59 ml/min) 12/01/2013 12/24/2014 Overview: Per CKD protocol #1 Pre-operative cardiovascular examination 06/25/2013 02/04/2014 Derange posterior horn later al meniscus left knee due to old injury 06/25/2013 10/30/2017 ANNA/ARB CONTRAINDICATED: BP at goal on Atenolol 01/31/2007 03/14/2010 Palpitations 03/21/2004 05/23/2017 HYPERTENSION NOS(aka HTN) 03/21/2004 Overview: Modified per HTN protocol #16. melanoma--lt lat thigh 06/24/2002 10/30/2017 dysplastic compound nevus--lower back 06/24/2002 10/30/2017 seborrheic keratosis--sternu m , left arm 07/0806/24/2002 10/30/2017 Other acne 06/24/2002 10/30/2017 documented as of this encounter (statuses as of 08/14/2024) Immunizations Name Administration Dates Next Due COVID-19 mRNA, LNP-s, No Pre serve, 2-Dose Series (Moderna) 12/11/2020,11/10/2020 COVID-19, MRNA-LNP, PF, 30 M CG/0.3 mL, 12 YRS AND ABOVE, IM (PFIZER-Comirnaty) 08/27/2023 COVID-19, mRNA, LNP-s, PF, B ooster, 100mcg/0.5mg (Moderna) 08/01/2021 Covid-19, Mrna, Lnp-s, Pf, B ivalent, 30 Mcg, IM, 12 yrs and above (Pfizer) 09/12/2022 H1N1 2009 Influenza, IM 01/10/2010 Pneumococcal Conjugate Vacc, 13 Valent (Prevnar) 08/14/2016 Pneumococcal Polysaccharide PPV23 (Pneumovax) 07/19/2012 RSV Vac., Bivalent, Perfusio n F, Pf,0.5 Ml (Abrysvo) 08/06/2023 Season Influenza, Quad, PF, Adjuvanted, 65+ Yrs, IM (FLUAD) 08/06/2020 Seasonal Influenza Vac., MDV , IM, 0.5 mL (Fluzone) 07/07/2015,07/03/2014,06/20/2013,06/08,06/12/2011,07/10/2010,08/06/20 09,07/29/2008,08/19/2007 Seasonal Influenza, High Dos e, Trivalent, PF, IM (Fluzone HD) 06/24/2024 Seasonal Influenza, PF, 6 M & above, IM , (FluLaval or Fluzone) 06/17/2019,07/05/2018,07/19/2017 Seasonal Influenza, Quadriva lent Hd (Fluzone Hd) 07/03/2023,07/10/2022,08/02/2021 Seasonal Influenza, Quadriva lent, No Preserve, IM 08/14/2016 08/14/2016 TD, Preservative Free 02/26/2018 TDAP, Age 7 and older, IM (Adacel) 11/29/2007 Varicella Zoster Vaccine (Adult) 09/22/2009 Zoster Vaccine Recombinant (Shingrix) 11/03/2019 ,08/06/2019 documented as of this encounter Social History Tobacco Use Types Packs/Day Years Used Date Smoking Tobacco: Never Smokeless Tobacco: Never Alcohol Use Standard Drinks/Week Comments No 0 (1 standard drink = 0.6 oz pur e alcohol) PHQ-2 Answer Date Recorded PHQ Adult Total Score 0 04/07/2022 Hunger Vital Sign Answer Date Recorded Within the past 12 months, y ou worried that your food would run out before you got the money to buy more. Never true 07/23/20 24 Within the past 12 months, t he food you bought just didn't last and you didn't have money to get more. Never true 07/23/2024 Childcare Answer Date Recorded Do you feel overwhelmed with taking care of a child, family member or friend? No 07/23/2024 Does your family need help f inding childcare? (Household - for ages 0-17 years) Not on file 07/23/2024 Clothing Answer Date Recorded Have you been unable to get clothing when it was really needed? No 07/23/2024 Is your family able to get c lothes or diapers when needed? (Household - for ages 0-17 years) Not on file 07/23/2024 Personal Safety Answer Date Recorded Do you feel unsafe or have concerns for your saf ety? No 07/23/2024 Do you have concerns for you r family's safety? (Household - for ages 0-17 years) Not on file 07/23/2024 Utilities Answer Date Recorded Do you have trouble paying y our heating, water, or electric bill? No 07/23/2024 Is your family able to pay t he heat, water, or electric bill? (Household - for ages 0-17 years) Not on file 07/23/2024 Does your family have access to good internet? (Household - for ages 0-17 years) Not on file 07/23/2024 Employment Status Answer Date Recorded Are you unemployed or without regular income? No 07/23/2024 Does the household have a re gular source of income? (Household - for ages 0-17 years) Not on file 07/23/2024 Social Connections Answer Date Recorded How often do you feel lonely or isolated from those around you? Sometimes 07/23/2024 Financial Resource Strain Answer Date R ecorded Do you have any trouble payi ng for your medications, or do you think you might in the future? No 07/23/2024 Does your family have troubl e paying for medicine? (Household - for ages 0-17 years) Not on file 07/23/2024 Transportation Needs Answer Date Record ed READ ONLY Do you have troubl e getting a ride to medical visits or work? Never True 07/23/2024 Does your family have a hard time getting a ride to doctors visits? (Household - for ages 0-17 years) Not on file 07/23/2024 Has lack of transportation k ept you from medical appointments, meetings, work, or from getting things needed for daily living? Check all that apply. No 07/23/2024 Do you (or your family) have trouble finding or paying for a ride (transportation)? (Household - for ages 0-17 years) Not on file 07/23/2024 Housing Stability Answer Date Recorded Do you currently live in a s helter or have no steady place to sleep at night? No 07/23/2024 READ ONLY Do you think you a re at risk of becoming homeless? No 07/23/2024 Does your family worry about paying for your home or becoming homeless? (Household - for ages 0-17 years) Not on file 1 Are you homeless or worried that you might be in the future? No 07/23/2024 Are you (or your family) shandra eless or worried that you might be in the future? (Household - for ages 0-17 years) Not on file Food Insecurity Answer Date Recorded Do you need food for this week? No 07/23/2024 Are you able to get enough f ood for your family? (Household - for ages 0-17 years) Not on file 07/23/2024 Does your family need food t his week? (Household - for ages 0-17 years) Not on file 07/23/2024 Do you always have enough fo od for your family? (Household - for ages 0-17 years) Not on file 07/23/2024 Sex and Gender Information Value Date Recorded Sex Assigned at Female 09/25/2022 8:02 AM EST Gender Identity Female 09/25/2022 8:02 AM EST Sexual Orientation Straight 09/25/2022 8: 02 AM EST Job Start Date Occupation Industry Not on file Not on file Not on file documented as of this encounter Miscellaneous Notes * Telephone Encounter - Maryjo Campbell RPh - 08/14/2024 10:58 AM ESTSigned Prescriptions: Disp Refills Potassium Chloride ER 10 MEQ Oral Tablet E*90 Tab*3 Sig: Take 1 Tablet by mouth in the morning. With food.Authorizing Provider: JASPAL FINLEY User: MARYJO CAMPBELL documented in this encounter Plan of Treatment Upcoming Encounters Date Type Department Care Team (Late st Contact Info) Description 10/14/2024 11:20 AM EST Office Visit Dermatology [facility] [place] [address] [place] [phone] Alison Burnham PA-C [address] [place] [phone] 01/09/2025 4:00 PM EDT Office Visit Family Practice [facility] [place] [address] [place] [place] [phone] Saman Almanza, DO [address] [place] [address] 07/23/2025 1:30 PM EDT Office Visit Cardiology, [facility] [address] [place] [address] Jaspal Finley, [address] [place] [id number] Scheduled Procedures Name Priority Associated Diagnoses Date/Ti me COLONOSCOPY FLEXIBLE PROXIMA L DIAGNOSTIC Recall History of colonic polyps Health Maintenance Due Date Last Done Comments Adult Wellness Visit 06/08/2018 06/08/2017 Depression Monitoring 04/07/2023 04/07/2022 COVID-19 Vaccine ( season) 2024 08/27/2023, 09/12/2022, 08/01/2021, Additional history exists GFR 03/04/2025 03/04/2024, 02/05, 10/18/2023, Additional history exists Albumin/Creatinine Ratio 10/16/2025 10/16/2022 DTap/Tdap Vaccines (3 - Td or Tdap) 02/27/2028 02/26/2018, 11/29/2007 Colonoscopy 10/24/2028 10/24/2023, 01/06, 01/18/2021, Additional history exists DXA Scan 07/15/2029 07/15/2024, 05/10, 05/31/2015, Additional history exists Fecal Occult Blood Test Discontinued 09/07/1999 Pneumococcal Vaccine: 65+ Years Completed 08/14/2016, 07/19/2012, 07/04/2004 Zoster Vaccines Completed 11/03/2019, 07/10, 09/22/2009 RETIRED - COLONOSCOPY-EVERY 5 YRS AGES 18-100 Discontinued 10/24/2023, 01/18/2021, 01/18/2021, Additional history exists Influenza Vaccine (FLU shot) Completed 06/24/2024, 07/03/2023, 07/10/2022, Additional history exists HPV (Gardasil) Vaccine Aged Out No lo nger eligible based on patient's age to complete this topic Hepatitis B Vaccine Aged Out No longe r eligible based on patient's age to complete this topic MENINGOCOCCAL (MENACTRA/MENVEO) Aged Out No longer eligible based on patient's age to complete this topic documented as of this encounter Medical Devices Implanted Type Area Booster Operator Device Identifier Shelf Expiration Date Model / Serial / Lot Lens Intraoc 23.0 - [id number] - [id number] Implanted:Qty: 1 on 09/24/2020 by Tuan Doyle MD at [facility] Left: Eye [employer] 01/05/2025 [id number] / [id number] / [id number] Lens Intraoc 22.5 - [id number] - [id number] Implanted:Qty: 1 on 10/19/2020 by Tuan Doyle MD at OR [facility] Right: Eye [employer] LOMB 04/06/2025 [id number] / [id number] / documented as of this encounter Visit Diagnoses Diagnosis HTN, goal below 140/90 Unspecified essential hypertension Diastolic dysfunction Heart disease, unspecified Coronary artery disease involving [place] coronary artery of [place] heart without angina pectoris documented in this encounter Advance Directives * Full Code (Latest Code Status on File) Date Activated Date Inactivated Comments 07/17/2016 3:47 PM 07/17/2016 10:33 PM This orde r reflects the patients wishes and were consensually agreed upon. Care Teams Electronics Mechanic Relationship Specialty Start Date End Date Saman Almanza DO [address] [place] [address] PCP - General Family Medicine 05/01/18 documented as of this encounter
--- OUTSIDE RECORDS SUMMARY | 2024-08-27 21:00 | External Medical Summary | Summary of Care ---
Author Name Unknown Organization [facility] Address [address] [place] [address] Phone [phone] Care Team Providers Care System Archive Analyst Name Role Phone Saman Almanza DO Primary Care Provider Reason for Visit * Reason Comments Physical-Exam Encounter Details Date Type Department Care Team (Late st Contact Info) Description 08/08/2024 11:00 AM EDT Office Visit [facility] [address] [facility] [place] [address] Saman Almanza DO [facility] [address] Pre-operative general physical examination*; Atherosclerosis of [place] coronary artery of [place] heart without angina pectoris; HTN, GOAL BELOW 140/90; Dyslipidemia, goal LDL below 70; Moderate episode of recurrent major depressive disorder (HCC) Allergies Active Allergy Reactions Criticality Noted Date Comments Adhesive Tape Itching Low 01/02/2001 Irritate skin Bacitracin Itching Low 01/02/2001 Irritate skin Cortisone Hypertension 05/26/2016 Diazepam Itching 02/17/2022 Severe systemic itch Dobutamine Itching 07/21/2024 Neosporin Itching Low 01/02/2001 Irritate Skin Oxycodone Itching 02/17/2022 Severe systemic itch Polymyxin B Itching Low 11/01/2023 Lisinopril Cough 11/12/2014 documented as of this encounter (statuses as of 08/08/2024) Medications Medication Sig Dispensed Refills Start Date End Date Status NITROGLYCERIN 0.4 MG SL SUBLIndications:Palpi tations,Coronary atherosclerosis of [place] coronary artery 1 every 5 min as needed with chest pain up to 3 doses in 15 minutes 20 Tab 3 12/27/2011 Active ASPIRIN 81 MG PO TABS Take 1 Tablet by mouth at bedtime. Active CPAP every night at bedtime. Active [place]-3 1000 MG Oral Capsule Take by mouth. Active Acetaminophen 500 MG Oral Tablet (Tylenol) Take 1 Tablet by mouth. 01/28/2022 Active ZyrTEC Allergy 10 MG Oral Capsule [...] as needed for flares 60 g 2 09/27/2022 Active Furosemide 20 MG Oral Tablet (Lasix)Indications:HT N, goal below 140/90,Dyslipidemia, goal LDL below 70,NOVA (dyspnea on exertion),Preoperativ e cardiovascular examination,Coronary artery disease involving [place] coronary artery of [place] heart without angina pectoris One tablet by mouth daily 90 Tablet 3 09/24/2023 Active Magnesium Oxide 400 240 MG Oral Packet (Magnesium Oxide) Take 400 mg by mouth every night at bedtime. Active Omeprazole 20 MG Oral Tablet Delayed Release Take 1 Tablet by mouth in the morning. 30 Tablet 12 11/01/2023 Active Ciclopirox 8 % External Solution Apply over nail and surrounding skin. Apply daily over previous coat. After seven (7) days, may remove with alcohol and continue cycle. 6.6 mL 5 11/27/2023 Active Rosuvastatin Calcium 20 MG Oral Tablet (Crestor)Indications: Dyslipidemia, goal LDL below 100 Take 1 Tablet by mouth in the morning. 90 Tablet 3 12/10/2023 Active Metoprolol Tartrate 50 MG Oral Tablet (Lopressor)Indication s:Palpitations,HTN, goal below 140/90 TAKE ONE AND ONE-HALF TABLET BY MOUTH EVERY MORNING AND TAKE ONE TABLET EVERY EVENING 225 Tablet 3 12/10/2023 Active Amoxicillin 500 MG Oral Capsule (Amoxil) TAKE 4 CAPSULE BY MOUTH NEEDED FOR OTHER ( DENTAL VISIT). 4 Capsule 01/31/2024 Active Famotidine 20 MG Oral Tablet (Pepcid)Indications:G astroesophageal reflux disease without esophagitis TAKE ONE TABLET BY MOUTH IN THE MORNING AND ONE TABLET BEFORE BEDTIME 180 Tablet 2 02/21/2024 Active Losartan Potassium 100 MG Oral Tablet (Cozaar)Indications:H TN, goal below 140/90 TAKE 1 TABLET BY MOUTH EVERY MORNING 90 Tablet 2 02/21/2024 Active FLUoxetine HCl 20 MG Oral Capsule (PROzac)Indications:M oderate episode of recurrent major depressive disorder (HCC) TAKE 1 CAPSULE BY MOUTH ONCE DAILY 90 Capsule 2 04/11/2024 Active DULoxetine HCl 20 MG Oral Capsule Delayed Release Particles (Cymbalta)Indications :Generalized osteoarthritis of multiple sites TAKE 1 CAPSULE BY MOUTH EVERY MORNING. DO NOT CUT, CRUSH, OR CHEW. 30 Capsule 5 05/02/2024 Active Potassium Chloride ER 10 MEQ Oral Tablet Extended ReleaseIndications:HT N, goal below 140/90,Diastolic dysfunction,Coronary artery disease involving [place] coronary artery of marsh[place] heart without angina pectoris Take 1 Tablet by mouth in the morning. With food. 90 Tablet 05/23/2024 Active Eplerenone 25 MG Oral Tablet (Inspra)Indications:D iastolic dysfunction,HTN, goal below 140/90 Take 1 Tablet by mouth in the morning. 90 Tablet 1 06/24/2024 Active Miebo 1.338 GM/ML Ophthalmic Solution Instill 1 Drop into both eyes 3 times a day as needed. 06/17/2024 Active documented as of this encounter (statuses as of 08/08/2024) Active Problems Problem Noted Date Diagnosed Date History of melanoma in situ 08/22/2021 Moderate episode of recurrent major depressive d isorder 02/05/2019 Cervicalgia 05/16/2018 Obesity, Class II, BMI 35-39.9, isolated (see ac tual BMI) 02/07/2018 History of melanoma 10/30/2017 ADVANCE DIRECTIVE INFORMATION 08/01/2016 Overview: Yes, Patient instructed to provide copy of advance directive for provider to review and to be scanned into Electronic Medical Record Edema 02/10/2015 Diastolic dysfunction 04/27/2014 GERD (gastroesophageal reflux disease) 4 Dyslipidemia, goal LDL below 70 09/04/2012 Cerebrovascular disease 04/25/2012 DAVID on CPAP 05/19/2010 Overview: APAP 8-12 cwp [facility] HTN, GOAL BELOW 140/90 08/26/2009 Overview: Modified per HTN protocol #16. CORONARY ATHEROSCLER. 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 documented as of this encounter (statuses as of 08/08/2024) Resolved Problems Problem Noted Date Diagnosed Date Resolved Date Hypertensive kidney disease, stage III 08/05/2018 02/05/2019 Kidney disease, chronic, sta ge III (GFR 30-59 ml/min) 02/26/2018 08/23/2018 Overview: Per CKD protocol #1 Diverticulosis of large inte mike without hemorrhage [...] as of this encounter (statuses as of 08/08/2024) Immunizations Name Administration Dates Next Due COVID-19 mRNA, LNP-s, No Pre serve, 2-Dose Series (Moderna) 12/11/2020,11/10/2020 COVID-19, MRNA-LNP, PF, 30 M CG/0.3 mL, 12 YRS AND ABOVE, IM ([facility] 08/27/2023 COVID-19, mRNA, LNP-s, PF, B ooster, [...] on file documented as of this encounter Last Filed Vital Signs Vital Sign Reading Time Taken Comments Blood Pressure 132/84 08/08/2024 10:53 AM EDT Pulse 61 08/08/2024 10:53 AM EDT Temperature 36.1 C (97 F) 08/08/2024 10:53 AM EDT Respiratory Rate 16 08/08/2024 10:53 AM EDT Oxygen Saturation 97% 08/08/2024 10:53 AM EDT Inhaled Oxygen Concentration - - Weight 92.8 kg (204 lb 9.6 oz) 08/08/2024 10:53 AM EDT Height - - Body Mass Index 36.83 10/18/2023 2:04 PM EST documented in this encounter Progress Notes * Saman Almanza, DO - 08/08/2024 11:15 AM EDT Subjective: Irina Suárez is a 79 year old female. Chief Complaint Patient presents with Physical-Exam HPI: Pt here for a pre-op physical for left hip replacement on 08/27 at [facility] with Dr. Cevallos. Dr. Goodrich has already given her cardiology clearance. Stress ECHO. She had blood work done for pre-op. UTI found and treated. No CP or SOB or palpitations. No unusual bleeding. Some chronic stable issues with swallowing. Fixed prior with no change in symptoms. Has never impacted surgery. No poor rections to anesthesia. HAs a history of allergy to valium. No poor outcomes with prior surgery. She will go on Eliquis after surgery. Blood work reviewed. CBC, INR, and CMP reviewed. 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 OF [place] CORONARY VESSEL HTN, GOAL BELOW 140/90 DAVID on CPAP Cerebrovascular disease Dyslipidemia, goal LDL below 70 GERD (gastroesophageal reflux disease) Diastolic dysfunction Edema History of melanoma Obesity, Class II, BMI 35-39.9, isolated (see actual BMI) Cervicalgia Moderate episode of recurrent major depressive disorder (HCC) History of melanoma in situ Current Outpatient Medications Medication Sig Dispense Refill NITROGLYCERIN 0.4 MG SL SUBL 1 every 5 min as needed with chest pain up to 3 doses in 15 minutes 20Tab 3 ASPIRIN 81 MG PO TABS Take 1 Tablet by mouth at bedtime. CPAP every night at bedtime. [place]-3 1000 MG Oral Capsule Take by mouth. Acetaminophen 500 MG Oral Tablet (Tylenol) Take 1 Tablet by mouth. ZyrTEC Allergy 10 MG Oral Capsule (Cetirizine HCl) Take 1 Capsule by mouth in the morning. CoQ10 100 MG Oral Capsule Take by mouth . B Complex 50 Oral Tablet Take by mouth. diphenhydrAMINE HCl 25 MG Oral Tablet Take 1 Tablet by mouth every 6 hours as needed for Itching. Hydrocortisone 2.5 % External Ointment Apply to groin 1-2 times daily as needed for flares 60 g 2 Furosemide 20 MG Oral Tablet (Lasix) One tablet by mouth daily 90 Tablet 3 Magnesium Oxide 400 240 MG Oral Packet (Magnesium Oxide) Take 400 mg by mouth every night at bedtime. Omeprazole 20 MG Oral Tablet Delayed Release Take 1 Tablet by mouth in the morning. 30 Tablet 12 Ciclopirox 8 % External Solution Apply over nail and surrounding skin. Apply daily over previous coat. After seven (7) days, may remove with alcohol and continue cycle. 6.6 mL 5 Rosuvastatin Calcium 20 MG Oral Tablet (Crestor) Take 1 Tablet by mouth in the morning. 90 Tablet 3 Metoprolol Tartrate 50 MG Oral Tablet (Lopressor) TAKE ONE AND ONE-HALF TABLET BY MOUTH EVERY MORNING AND TAKE ONE TABLET EVERY EVENING 225 Tablet 3 Famotidine 20 MG Oral Tablet (Pepcid) TAKE ONE TABLET BY MOUTH IN THE MORNING AND ONE TABLET BEFOREBEDTIME 180 Tablet 2 Losartan Potassium 100 MG Oral Tablet (Cozaar) TAKE 1 TABLET BY MOUTH EVERY MORNING 90 Tablet 2 FLUoxetine HCl 20 MG Oral Capsule (PROzac) TAKE 1 CAPSULE BY MOUTH ONCE DAILY 90 Capsule 2 DULoxetine HCl 20 MG Oral Capsule Delayed Release Particles (Cymbalta) TAKE 1 CAPSULE BY MOUTH EVERY MORNING. DO NOT CUT, CRUSH, OR CHEW. 30 Capsule 5 Potassium Chloride ER 10 MEQ Oral Tablet Extended Release Take 1 Tablet by mouth in the morning. With food. 90 Tablet 0 Eplerenone 25 MG Oral Tablet (Inspra) Take 1 Tablet by mouth in the morning. 90 Tablet 1 Miebo 1.338 GM/ML Ophthalmic Solution Instill 1 Drop into both eyes 3 times a day as needed. Amoxicillin 500 MG Oral Capsule (Amoxil) TAKE 4 CAPSULE BY MOUTH NEEDED FOR OTHER ( DENTAL VISIT). 4 Capsule 0 No current facility-administered medications for this visit. Review of patient's allergies indicates: Allergen Reactions Cortisone Hypertension Diazepam Itching Severe systemic itch Dobutamine Itching Oxycodone Itching Severe systemic itch Prinivil [Lisinopril] Cough Adhesive Tape Itching Irritate skin Bacitracin Itching Irritate skin Neosporin Itching Irritate Skin Polymyxin B Itching OBJECTIVE: BP 132/84 | Pulse 61 | Temp 36.1 C (97 F) (Tympanic) | Resp 16 | Wt 92.8 kg (204 lb 9.6 oz) | LMP 08/12/2001 | SpO2 97% | BMI 36.83 kg/m | BSA 2.02 m Estimated body mass index is 36.83 kg/m as calculated from the following: Height as of 10/18/23: 1.588 m (5' 2.5"). Weight as of this encounter: 92.8 kg (204 lb 9.6 oz). BP Readings from Last 3 Encounters: 08/08/24 132/84 07/08/24 130/78 06/24/24 136/74 Wt Readings from Last 3 Encounters: 08/08/24 92.8 kg (204 lb 9.6 oz) 07/08/24 95.7 kg (211 lb) 06/24/24 95 kg (209 lb 6.4 oz) ROS: General: No change in weight, No weakness, No fatigue and No fevers, sweats, or chills Head: No significant headache and No recent significant head injury Eyes: No recent significant change in vision, No eye pain, redness, discharge, or excessive tearing, No diplopia and No h/o cataracts or glaucoma Ears: No recent change in hearing, No tinnitus or vertigo, No ear pain and No ear discharge Nose: No h/o frequent colds or sinusitis, No nasal stuffiness, No h/o hay fever and No significant epistaxis Throat/Oropharynx: No teeth or gum problems, No bleeding gums, No tongue complaints, No sore throatand No recent change in voice or hoarseness Neck: No complaint of lumps in neck, No swollen glands, No recent swelling in thyroid area and No significant pain in neck Respiratory: No cough, sputum, or hemoptysis, No wheezing, No shortness of breath and No recent change in breathing Cardiac: No chest pain, No shortness of breath, No dyspnea on exertion, No orthopnea, No paroxysmalnocturnal dyspnea, No edema, No palpitations and No syncope Gastrointestinal: No dysphagia, No significant heartburn, No significant change in appetite, No nausea, vomiting, diarrhea, or constipation, No hematemesis, No blood in stools or black tarry stools, No abdominal bloating or early satiety and No abdominal pain Urinary: No urinary frequency, No dysuria, No hematuria, No urinary urgency, No polyuria, No nocturia, No incontinence, No hesitancy and No sensation of incomplete voiding Musculoskeletal: chronic hip pain Hematologic: No anemia, No easy bruising or abnormal bleeding and No history of transfusion Neurologic: No fainting or blackouts, No seizures, No paralysis or focal weakness, No numbness or tingling, No tremors and No significant problems with memory PHYSICAL EXAM: General: alert, healthy and no distress Head: Normocephalic, No masses, lesions, tenderness or abnormalities Ears: External ears normal, Canals clear, TM's Normal Nose: no mucosal erythema, no mucosal edema, no purulent discharge Oropharynx: no exudate, no erythema, lips, buccal mucosa, and tongue normal and mucous membranes are moist Heart: regular rate & rhythm, no murmurs and no gallops Lungs: chest symmetric with normal AP diameter, no chest deformities noted, no chest wall tenderness, lungs clear to auscultation Abdomen: abdomen soft, non-tender, normal bowel sounds and no masses or organomegaly Extremities: less than 2 second capillary refill, no joint deformities, effusion, or inflammation ASSESSMENT/Plan Pre-operative general physical examination (Primary) Atherosclerosis of marshall coronary artery of marshall heart without angina pectoris HTN, GOAL BELOW 140/90 Dyslipidemia, goal LDL below 70 Moderate episode of recurrent major depressive disorder (HCC) Blood work, urine and stress eCHO reviewed. UTI already treated. PT cleared for surgery with low likelihood of manuel-operative complications. The above was discussed and understanding was expressed. Saman Almanza DO documented in this encounter Nursing Notes * Harper Tavares LPN - 08/08/2024 10:50 AM EDT Irina Suárez presents for pre op physical exam. Medications & HM reviewed. documented in this encounter Plan of Treatment Upcoming Encounters Date Type Department Care Team (Late st Contact Info) Description 10/14/2024 11:20 AM EST Office Visit [facility] [address] [facility] [place] [address] Alison Burnham PA-C [address] [place] [address] 01/09/2025 4:00 PM EDT Office Visit Family Practice [facility] [address] [place] [address] Saman Almanza DO [address] [facility] [place] [address] 07/23/2025 1:30 PM EDT Office Visit Cardiology, [facility] [address] [place] [address] Narayan Goodrich DO [address] [place] [address] Scheduled Procedures Name Priority Associated Diagnoses Date/Ti [...] this encounter Medical Devices Implanted Type Area Finish Machine Tender Device Identifier Shelf Expiration Date Model / Serial / Lot Lens Intraoc 23.0 - [id number] - [id number] Implanted:Qty: 1 on 09/24/2020 by Tuan Doyle MD at OR [facility] Left: Eye [employer]OM[employer] 01/05/2025 [id number] / [id number] / [id number] Lens Intraoc 22.5 - [id number] - [id number] Implanted:Qty: 1 on 10/19/2020 by Tuan Doyle MD at OR [facility] Right: Eye BAUSCH [employer] LOMB 04/06/2025 [id number] / [id number] / documented as of this encounter Visit Diagnoses Diagnosis Pre-operative general physical examination- Primary Other specified pre-operative examination Atherosclerosis of [place] coronary artery of [place]all heart without angina pectoris HTN, GOAL BELOW 140/90 Unspecified essential hypertension Dyslipidemia, goal LDL below 70 Other and unspecified hyperlipidemia Moderate episode of recurrent major depressive disorder (HCC) documented in this encounter Advance Directives * Full Code (Latest Code Status on File) Date Activated Date Inactivated Comments 07/17/2016 3:47 PM 07/17/2016 10:33 PM This orde r reflects the patients wishes and were consensually agreed upon. Care Teams System Archive Analyst Relationship Specialty Start Date End Date Saman Almanza DO [address] [place] [address] PCP - General Family Medicine 05/01/18 documented as of this encounter
--- OUTSIDE RECORDS SUMMARY | 2024-08-27 21:00 | External Medical Summary | Summary of Care ---
Author Name Unknown Organization [facility] Address [address] [place] [address] Phone [phone] Care Team Providers Care Research Test Engine Operator Name Role Phone ArchieSaman Perla BRADSHAW Primary Care Provider [phone] Reason for Visit * Reason Comments Outpatient Testing Encounter Details Date Type Department Care Team (Late st Contact Info) Description 08/04/2024 2:50 PM EDT Laboratory [place] [facility] [address] [place] [id number] [place] [address] [place] [address] Primary osteoarthritis of both hips Allergies Active Allergy Reactions Criticality Noted Date Comments Adhesive Tape Itching Low 01/02/2001 Irritate skin Bacitracin Itching Low 01/02/2001 Irritate skin Cortisone Hypertension 05/26/2016 Diazepam Itching 02/17/2022 Severe systemic itch Dobutamine Itching 07/21/2024 Neosporin Itching Low 01/02/2001 Irritate Skin Oxycodone Itching 02/17/2022 Severe systemic itch Polymyxin B Itching Low 11/01/2023 Lisinopril Cough 11/12/2014 documented as of this encounter (statuses as of 08/04/2024) Medications Medication Sig Dispensed Refills Start Date End Date Status NITROGLYCERIN 0.4 MG SL SUBLIndications:Palpi tations,Coronary atherosclerosis of [place] coronary artery 1 every 5 min as needed with chest pain up to 3 doses in 15 minutes 20 Tab 3 12/27/2011 Active Additional Information Patient not taking.Reported on 07/08/2024 ASPIRIN 81 MG PO TABS Take 1 Tablet by mouth at bedtime. Active CPAP every night at bedtime. Active [place]-3 1000 MG Oral Capsule Take by mouth. [...] exertion),Preoperativ e cardiovascular examination,Coronary artery disease involving [place] coronary artery of [place] heart without angina pectoris One tablet by [...] ( DENTAL VISIT). 4 Capsule 01/31/2024 Active Additional Information Patient not taking.Reported on 07/08/2024 Famotidine 20 MG Oral Tablet (Pepcid)Indications:G astroesophageal [...] goal below 140/90,Diastolic dysfunction,Coronary artery disease involving [place] coronary artery of [place] heart without angina pectoris Take 1 Tablet [...] as of this encounter (statuses as of 08/04/2024) Active Problems Problem Noted Date Diagnosed Date [...] per HTN protocol #16. CORONARY ATHEROSCLER. 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 documented as of this encounter (statuses as of 08/04/2024) Resolved Problems Problem Noted Date Diagnosed Date [...] as of this encounter (statuses as of 08/04/2024) Immunizations Name Administration Dates Next Due COVID-19 mRNA, LNP-s, No Pre serve, 2-Dose Series (Moderna) 12/11/2020,11/10/2020 COVID-19, MRNA-LNP, 23-24, P F, 30 MCG/0.3 mL, 12 YRS AND ABOVE, IM (PFIZER-Comirnaty) [...] on file documented as of this encounter Plan of Treatment Upcoming Encounters Date Type Department Care Team (Late st Contact Info) Description 08/06/2024 2:00 PM EDT Office Visit [facility] [address] [place] [address] Juanita Jackson PA-C [address] [facility] [place] [address] 10/14/2024 11:20 AM EST Office Visit Dermatology [facility] [address] [place] [address] Alison Burnham PA-C [address] [facility] [place] [address] 01/09/2025 4:00 PM EDT Office Visit [facility] [address] [place] [address] Saman Almanza, [address] [facility] [place] [address] 07/23/2025 1:30 PM EDT Office Visit Cardiology, [facility] [address] [place] [address] Narayan Goodrich, DO [address] [place] [address] Pending Results Name Type Priority Associated Diagnoses Date /Time URINALYSIS WITH MICROSCOPIC EXAM Lab Routine Primary osteoarthritis of both hips 08/04/2024 3:07 PM EDT Scheduled Procedures Name Priority Associated Diagnoses Date/Ti [...] this encounter Medical Devices Implanted Type Area [employer] Auto [employer]air Teacher Device Identifier Shelf Expiration Date Model / Serial / Lot Lens Intraoc 23.0 - [id number] - [id number] Implanted:Qty: 1 on 09/24/2020 by Tuan Doyle MD at OR [facility] Left: Eye [employer]OMB 01/05/2025 [id number] / [id number] / [id number] Lens Intraoc 22.5 - [id number] - [id number] Implanted:Qty: 1 on 10/19/2020 by Tuan Doyle MD at OR [facility] Right: Eye [employer] LOMB 04/06/2025 [id number] / [id number] / documented as of this encounter Visit Diagnoses Diagnosis Primary osteoarthritis of both hips Primary localized osteoarthrosis, pelvic region and thigh documented in this encounter Advance Directives * Full Code (Latest Code Status on File) Date Activated Date Inactivated Comments 07/17/2016 3:47 PM 07/17/2016 10:33 PM This orde r reflects the patients wishes and were consensually agreed upon. Care Teams Research Test Engine Operator Relationship Specialty Start Date End Date Saman Almanza DO [address] [place] [address] PCP - General Family Medicine 05/01/18 documented as of this encounter
--- OUTSIDE RECORDS SUMMARY | 2024-08-27 21:01 | External Medical Summary | Continuity of Care Document ---
Author Name Unknown Organization [id number] Address [address] [place] [phone] Care Team Providers Care Ward Assistant Name Role Phone MelecioSaman cazares Perla Primary Care Physician [phone] En[id number] Date(s): 08/01/24 - 08/01/24 [facility] 112Q [facility] [address] [place] [id number] Encounter Diagnosis Degenerative arthritis of hip(Discharge Diagnosis) - 08/01/24 Discharge Disposition: Home or Self Care Attending Physician: JOSE Fisher, Isac Duncan Referring Physician: MD Óscar, Abhijit Feng Allergies, Adverse Reactions, Alerts Substance Criticality Severity Reaction Reaction Severity Status cortisone 1 Active lisinopril 2 Active Neosporin itching Active diazePAM 3 Unable to assess criticality Moderate Itch Active Adhesive bandage Act lalita Betadine Active oxyCODONE itching Active 1raised BP and HR 2cough 3Possible reaction, pt unsure if Diazepam or Oxycodone Medications Renetta Start: 04/05/20 1:33:00 PM EDT Start Date: 04/05/20 Status: Ordered amoxicillin 500 mg oral capsule See Instructions, Disp# 4 cap, Refills: 1, Take 4 capsules by mouth one hour before appointment, Pharmacy: [id number] Start Date: 12/29/20 Status: Ordered aspirin 81 mg oral tablet Start: 06/18/13 10:24:00 AM EDT, 1 tab, PO, Daily Start Date: 06/18/13 Status: Ordered Benadryl Start: 08/01/24 9:53:00 AM EDT Start Date: 08/01/24 Status: Ordered Co Q-10 100 mg oral capsule Start: 07/14/24 9:32:00 AM EDT Start Date: 07/14/24 Status: Ordered Cymbalta 20 mg oral delayed release capsule Start: 07/14/24 9:33:00 AM EDT, 1 cap, PO, Daily Start Date: 07/14/24 Status: Ordered eplerenone 25 mg oral tablet Start: 07/14/24 9:33:00 AM EDT, 1 tab, PO, Daily Start Date: 07/14/24 Status: Ordered famotidine 20 mg oral tablet Start: 09/22/19 11:03:00 AM EST, 1 tab, PO, Daily Start Date: 09/22/19 Status: Ordered FLUoxetine 20 mg oral capsule Start: 09/22/19 11:03:00 AM EST, 1 cap, PO, Daily Start Date: 09/22/19 Status: Ordered furosemide 20 mg oral tablet Start: 07/07/16 1:06:00 PM EDT, 1 tab, PO, Daily Start Date: 07/07/16 Status: Ordered gabapentin 100 mg oral capsule Start: 05/16/21 10:54:00 AM EDT, 1 cap, PO, tid, Disp# 90 cap, Refills: 1, Pharmacy: [id number] Start Date: 05/16/21 Status: Ordered losartan 25 mg oral tablet Start: 05/29/13 8:51:00 AM EDT, 2 tab, PO, Daily Start Date: 05/29/13 Status: Ordered Macrobid 100 mg oral capsule Start: 07/24/24 3:38:00 PM EDT, 1 cap, PO, bid, Disp# 14 cap, Pharmacy: [id number] Start Date: 07/24/24 Status: Ordered magnesium oxide 400 mg (241.3 mg elemental magnesium) oral tablet Start: 06/18/13 10:26:00 AM EDT, 1 tab, PO, Daily Start Date: 06/18/13 Status: Ordered Metoprolol Tartrate Start: 04/03/14 12:23:00 PM EDT, See Instructions, 50mg 1 1/2 QAm and 1 in PM Start Date: 04/03/14 Status: Ordered Nitrostat 0.4 mg sublingual tablet Start: 05/29/13 8:52:00 AM EDT, 1 tab, SL, q5min, PRN: as needed for chest pain Start Date: 05/29/13 Status: Ordered Sproul-3 Fish Oil Start: 07/14/24 9:34:00 AM EDT Start Date: 07/14/24 Status: Ordered Sproul-3 Fish Oil Start: 08/01/24 9:54:00 AM EDT Start Date: 08/01/24 Status: Ordered omeprazole 40 mg oral delayed release capsule Start: 04/03/14 12:21:00 PM EDT, 1 cap, PO, Daily Start Date: 04/03/14 Status: Ordered potassium chloride 10 mEq/50 mL intravenous solution Start: 07/07/16 1:06:00 PM EDT Start Date: 07/07/16 Status: Ordered rosuvastatin 20 mg oral tablet Start: 06/07/17 9:49:00 AM EDT, 1 tab, PO, Daily Start Date: 06/07/17 Status: Ordered Vitamin B Complex Start: 07/14/24 9:20:00 AM EDT Start Date: 07/14/24 Status: Ordered Voltaren 1% topical gel Start: 02/05/19 9:44:00 AM EDT, 4 g =, topical, qid, Disp# 500 g, Refills: 3, PRN: Pain, Pharmacy: [id number] Start Date: 02/05/19 Status: Ordered ZyrTEC Start: 08/01/24 9:54:00 AM EDT Start Date: 08/01/24 Status: Ordered Mental Status 08/01/24 Barriers to Learning one year None evide nt Mandatory Health Literacy Documentation Yes Health Literacy Communication Barriers N ever Primary Language Omani Problem List Condition Confirmation Course Effective Dates Status H ealth Status Informant Ankle pain, left Confirmed Active Cervical radiculopathy Confirmed Active Degenerative cervical disc Confirmed Active Edema of lower extremity Confirmed Active S/P total hip arthroplasty Confirmed Active Right hip pain Confirmed Active Sacroiliitis Confirmed Active Left knee pain Confirmed Active Low back pain Confirmed Active Lumbosacral radiculopathy Confirmed Active Degenerative arthritis of hip Confirmed Active Sciatica Confirmed Active Lumbar spinal stenosis Confirmed Active Spondylolisthesis, cervical region Confirmed Active Tear of lateral meniscus of knee Confirmed Active Diagnosis Diagnosis Type Effective Dates Health Status Clinical Service Informant Degenerative arthritis of hip Discharge Diagnosis 08/01/24 Procedures Procedure Date Related Diagnosis Body Site Status D&C 1 Completed gall bladder 2 Completed mastoidtomy 3 Completed stent 4 Completed [id number] Vital Signs Most recent to oldest [Reference Range]: 1 Height 159 cm (08/01/24 9:49 AM) Patient Weight 95.2 kg (08/01/24 9:49 AM) Body Mass Index 37.66 kg/m2 (08/01/24 9:49 AM) Temperature [36.5-37.9 DegC] 36.1 DegC *LOW* (08/01/24 9:49 AM) Respiratory Rate 20 br/min (08/01/24 9:49 AM) Blood Pressure 128/70mmHg (08/01/24 9:49 AM) Social History Social History Type Response Smoking Status Former Smoker, quit > 1 yr Sex Female Sex Representation Female (finding) Pre-OP H & P * JOSE Norwood Jennifer R: PERFORM Event Display: Pre-OP H & P Authored Date: [id number] Name:PARESH LORENZO Patient Number:[id number] :1945 Date of Service:08/01/2024 Chief Complaint Pre op L HALLIE History of Present Illness Westley Hastings presents today for apreoperative history and physical. She is scheduled to have aleft total hip arthroplasty, possible dual mobility, possible cemented femur with Dr. Cantrell on August 27, 2024. She has been having left hip painfor many years, started after her L3-L4 fusion in January 2022 and then developing COVID.. She states that she has trouble ambulating due to pain in the left hip. Most of her pain is in the groin. It is constant pain with intermittent sharpness. It affects her activities of daily living. She does use a cane to assist with ambulation. She has a walker at home as well. She has tried outpatient physical therapy with no significant relief. She has a history of having a right total hiparthroplasty in the past. She takes Tylenol for pain. Her x- rays show advanced joint space narrowing and subchondral cyst formation of the left hip with nuti-ev-wjor changes. Due to her failureof conservative treatment and persistently worsening symptoms surgical invention was recommended. She does agree to proceed with surgery. Review of Systems Denies any recent cough, cold, fevers, chills or flulike symptoms. She denies any lightheadedness, dizziness, syncopal episodes, headaches, migraines or seizures. Denies any bleeding or clotting disorders or history of DVT or pulmonary embolism. Denies any recent hospitalizations. Denies any history of metal sensitivity, latex allergy or MRSA. Denies any shortness of breath or chest pain. Denies abdominal pain, heartburn, indigestion, nausea, vomiting, diarrhea or constipation. She has chronic urinary incontinence. She did recently have a urinary tract infection that was treated with Macrobid. She denies any urinary frequency, burning or foul-smelling urine. Denies any hearing or visionchanges. Denies any dental problems. Physical Exam Vitals & Measurements T:36.1C RR:20 BP:128/70 SpO2:96% HT:159cm WT:95.2kg WT:95.200kg(Dosing) BMI:37.66 BMI:37.66 kg/m2 Vitals:Last Updated 08/01/24 09:49 Date Temp BP Location Pulse RR SpO2 Pain 08/01/24 36.1 128/70 20 96 08/01/24 4 07/14/24 4 Height and Weight:Last Updated 08/01/24 09:49 Date BMI Wt(kg) Wt(lb) Method Ht(cm) (ft-in) Method 08/01/24 37.66 95.2 209 Standing Scale 159 5-2 Standing 07/14/24 37.74 95.4 210 Standing Scale 159 5-2 Standing 06/03/21 32.77 83.9 185 Standing Scale 160 5-3 General:Well-dressed, well-nourished. Normal mood and affect. Alert and oriented x3. HEENT:Head: Atraumatic, normocephalic. Eyes: Extraocular movements intact, pupils equal round and reactive to light, sclera normal. Ears: Ears grossly normal, TMs are clear normal light reflex.Nose: Nares are patent bilaterally. Throat: Oropharynx clear mucous membranes moist good dentition uvula midline. Neck:Supple, no lymphadenopathy, nontender palpation, full range of motion. Cardiac:Regular rate and rhythm, normal S1, S2. No murmurs, rubs or gallops appreciated. Lungs:Clear to auscultation bilaterally. No adventitious sounds. No accessory muscle use. Abdomen:Soft, nontender, nondistended, normal bowel sounds heard in all 4 quadrants. Extremities:Focus on the left lower extremity: Femoral and sciatic nerve function intact. Hip flexion 90 . Any type of internal rotation produces pain. External rotation contracture 5 Diagnostic Results I obtained and personally interpreted 2 views of the left hip taken today and stored [facility]. Thereisadvanced joint space narrowingand subchondralcyst formationof the left hip, [id number].There is a well-fixed, well-aligned right hip replacement without evidence of complication Assessment/Plan 1.Degenerative arthritis of hip Patient is scheduled for left total hip arthroplasty, possible dual mobility, possible cemented femur with Dr. Cantrell on August 27, 2024. Risk and complications of the procedure were explained to the patient and include but are not limited to infection, pain, bleeding, scarring, nerve and blood vessel damage, wound problems, weakness, stiffness, incomplete relief of symptoms, hardware failure, hardware loosening, wear, fracture, tendon or ligament injury, dislocation, leg length inequality, blood clots, embolisms, heart attack, stroke and . All questions were answered and informed consent was obtained today. She did have preadmission testing prior to today's appointment in which she had a CBC, BMP, PT, PTT, type and screen, urinalysis with culture, chest x- ray and EKG performed. Her recent x-rays were done on July 14, 2024. She does not wish to have a handicap parking placard. She was instructed on the usage of the CHG class preoperatively. We will use tramadol and Tylenol for postoperative pain control. She does not know if she has had [place] in the past but she may tolerate this but she gets severe itchiness with oxycodone. She has a walker, a cane, raised toilet seat and shower chair for use after surgery. She would like in-home health with alf and home physical therapy postoperatively. Once outpatient the physical therapy isrequired she would like to come to our office. Pain medications and her Eliquis will be prescribed at time of discharge. We use Eliquis 2.5 mg p.o. twice daily for 4 weeks after surgery for DVT prophylaxis. She will follow-up as scheduled with Isac Fisher PA-C as scheduled. She understands and agrees with the plan. All questions were answered. She knows to call with any further problems, questions or concerns. This chart was completed utilizing [employer] voice recognition software. Grammatical errors, random word insertions, pronoun errors, and in complete sentences are an occasional consequence of the system. Any questions or concerns about the content, text, or information contained within the body of this dictation should be addressed directly to the provider for clarification. Problem List/Past Medical History Ongoing Ankle pain, left Cervical radiculopathy Degenerative arthritis of hip Degenerative cervical disc Edema of lower extremity Left knee pain Low back pain Lumbar spinal stenosis Lumbosacral radiculopathy Right hip pain S/P total hip arthroplasty Sacroiliitis Sciatica Spondylolisthesis, cervical region Tear of lateral meniscus of knee History of PVCs Anxiety Depression History of TIA's with no residual effects Sleep apnea with use of his CPAP TMJ Acid reflux Obesity History of melanoma Procedure/Surgical History D&C mastoidtomy gall bladder stent Price teeth extraction L3-L4 fusion Oophorectomy Right total hip arthroplasty Cataracts Medications Home amoxicillin(amoxicillin 500 mg oral capsule), See Instructions aspirin(aspirin 81 mg oral tablet), 81 mg= 1 tab, PO, Daily cetirizine(ZyrTEC) diclofenac topical(Voltaren 1% topical gel), 4 g, topical, qid, PRN, 3 refills diphenhydrAMINE(Benadryl) DULoxetine(Cymbalta 20 mg oral delayed release capsule), 20 mg= 1 cap, PO, Daily eplerenone(eplerenone 25 mg oral tablet), 25 mg= 1 tab, PO, Daily famotidine(famotidine 20 mg oral tablet), 20 mg= 1 tab, PO, Daily fexofenadine(Renetta) FLUoxetine(FLUoxetine 20 mg oral capsule), 20 mg= 1 cap, PO, Daily furosemide(furosemide 20 mg oral tablet), 20 mg= 1 tab, PO, Daily gabapentin(gabapentin 100 mg oral capsule), 100 mg= 1 cap, PO, tid, 1 refills losartan(losartan 25 mg oral tablet), 50 mg= 2 tab, PO, Daily magnesium oxide(magnesium oxide 400 mg (241.3 mg elemental magnesium) oral tablet), 400 mg= 1 tab, PO, Daily metoprolol(Metoprolol Tartrate), See Instructions multivitamin(Vitamin B Complex) nitrofurantoin(Macrobid 100 mg oral capsule), 100 mg= 1 cap, PO, bid nitroglycerin(Nitrostat 0.4 mg sublingual tablet), 0.4 mg= 1 tab, SL, q5min, PRN omega-3 polyunsaturated fatty acids(Sproul-3 Fish Oil) omega-3 polyunsaturated fatty acids(Sproul-3 Fish Oil) omeprazole(omeprazole 40 mg oral delayed release capsule), 40 mg= 1 cap, PO, Daily potassium chloride(potassium chloride 10 mEq/50 mL intravenous solution) rosuvastatin(rosuvastatin 20 mg oral tablet), 20 mg= 1 tab, PO, Daily ubiquinone(Co Q-10 100 mg oral capsule) Allergies diazePAM (Moderate)Itch Adhesive bandage Betadine Neosporinitching cortisone lisinopril oxyCODONEitching Social History Smoking Status Former Smoker, quit > 1 yr Alcohol - Denies Alcohol Use Exercise - Does not exercise Tobacco - Denies Tobacco Use Family History Diabetes: Sister. Heart Failure: Mother, Father and Brother. Heart attack: Sister. Electronic Signature on File Electronically Reviewed/Signed by: Jammie Norwood PA-C Author Signature Dt/Tm:08/01/2024 03:57PM Division of Sports Medicine Electronically Reviewed/Signed by: Abhijit Cantrell MD Cosigner Signature Dt/Tm: 08/01/2024 04:16 PM Technical Training Instructor for Clinical Affairs, [facility] Professor in Orthopaedics Investigator Narcotics, [facility] Patient Care team information Care Team Personnel Name: DO Almanza Shane D Position: Referring DIRECT Member Role: Primary Care Provider Address: [address] [place] [address] Care Team Related Persons Name: DEXTER LORENZO
--- OUTSIDE RECORDS SUMMARY | 2024-08-27 21:01 | External Medical Summary | Summary of Care ---
Author Name Unknown Organization [facility] Address [address] [place] [address] Phone [phone] Care Team Providers Care Cisco Network Architect Name Role Phone Catracho Almanzae Perla BRADSHAW Primary Care Provider Reason for Visit * Reason Onset Date Comments Information 07/21/2024 Encounter Details Date Type Department Care Team (Late st Contact Info) Description 07/21/2024 Telephone Cardiology, [facility] [address] [place] [address] Narayan Goodrich, [address] [place] [address] Information Allergies Active Allergy Reactions Criticality Noted Date Comments Adhesive Tape Itching Low 01/02/2001 Irritate skin Bacitracin Itching Low 01/02/2001 Irritate skin Cortisone Hypertension 05/26/2016 Diazepam Itching 02/17/2022 Severe systemic itch Dobutamine Itching 07/21/2024 Neosporin Itching Low 01/02/2001 Irritate Skin Oxycodone Itching 02/17/2022 Severe systemic itch Polymyxin B Itching Low 11/01/2023 Lisinopril Cough 11/12/2014 documented as of this encounter (statuses as of 07/23/2024) Medications Medication Sig Dispensed Refills Start Date End Date Status NITROGLYCERIN 0.4 MG SL SUBLIndications:Palpi tations,Coronary atherosclerosis of [place] coronary artery 1 every 5 min as needed with chest pain up to 3 doses in 15 minutes 20 Tab 3 12/27/2011 Active Additional Information Patient not taking.Reported on 07/08/2024 ASPIRIN 81 MG PO TABS Take 1 Tablet by mouth at bedtime. Active CPAP every night at bedtime. Active [place]-3 1000 MG Oral Capsule Take by mouth. [...] exertion),Preoperativ e cardiovascular examination,Coronary artery disease involving [place] coronary artery of [place] heart without angina pectoris One tablet by [...] goal below 140/90,Diastolic dysfunction,Coronary artery disease involving [place] coronary artery of [place] heart without angina pectoris Take 1 Tablet by mouth in the morning. With food. 90 Tablet 05/23/2024 Active Eplerenone 25 MG Oral Tablet (Inspra)Indications:D iastolic dysfunction,HTN, goal below 140/90 Take 1 Tablet by mouth in the morning. 90 Tablet 1 06/24/2024 Active Miebo 1.338 GM/ML Ophthalmic Solution Instill 1 Drop into both eyes 3 times a day as needed. 06/17/2024 Active Hospital, Clinic, or Other Facility Administered Medication Ordered Dose Route Frequency Start Date End Date Status DOBUTamine 250 mg in D5W 250 mL (peripheral) final conc 1000 mcg/mLIndications:Preo perative cardiovascular examination,Atheroscle rosis of [place] coronary artery of [place] heart without angina pectoris,HTN, goal below 140/90,Dyslipidemia, goal LDL below 70 957 mcg/min PERIPH IV CONTINUOUS 07/21/2024 07/21/2024 Ended documented as of this encounter (statuses as of 07/23/2024) Active Problems Problem Noted Date Diagnosed Date [...] per HTN protocol #16. CORONARY ATHEROSCLER. 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 documented as of this encounter (statuses as of 07/23/2024) Resolved Problems Problem Noted Date Diagnosed Date [...] as of this encounter (statuses as of 07/23/2024) Immunizations Name Administration Dates Next Due COVID-19 [...] Valent (Prevnar) 08/14/2016 Pneumococcal Polysaccharide PPV23 (Pneumovax) 07/19/2012,07/04/2004 RSV Vac., Bivalent, Perfusio n F, Pf,0.5 Ml (Abrysvo) 08/06/2023 Season Influenza, Quad, PF, Adjuvanted, 65+ Yrs, IM (FLUAD) 08/06/2020 Seasonal Influenza Vac., MDV , IM, 0.5 mL (Fluzone) 07/07/2015,07/03/2014,06/20/2013,06/08,06/12/2011,07/10/2010,10,07/29/2008,08/19/2007,07/20/2004,1 10/19/2002 Seasonal Influenza, High Dos e, Trivalent, PF, [...] you got the money to buy more. Patient declined Within the past 12 months, t he food you bought just didn't last and you didn't have money to get more. Patient declined 03/2024 Childcare Answer Date Recorded Do you feel overwhelmed with taking care of a child, family member or friend? No 11/13/2023 Does your family need help f inding childcare? (Household - for ages 0-17 years) Not on file 11/13/2023 Clothing Answer Date Recorded Have you been unable to get clothing when it was really needed? No 11/13/2023 Is your family able to get c lothes or diapers when needed? (Household - for ages 0-17 years) Not on file 11/13/2023 Personal Safety Answer Date Recorded Do you feel unsafe or have concerns for your saf ety? No 11/13/2023 Do you have concerns for you r family's safety? (Household - for ages 0-17 years) Not on file 11/13/2023 Utilities Answer Date Recorded Do you have trouble paying y our heating, water, or electric bill? No 11/13/2023 Is your family able to pay t he heat, water, or electric bill? (Household - for ages 0-17 years) Not on file 11/13/2023 Does your family have access to good internet? (Household - for ages 0-17 years) Not on file 11/13/2023 Employment Status Answer Date Recorded Are you unemployed or without regular income? Ye s 11/13/2023 Does the household have a re gular source of income? (Household - for ages 0-17 years) Not on file 11/13/2023 Social Connections Answer Date Recorded How often do you feel lonely or isolated from th ose around you? Rarely 11/13/2023 Financial Resource Strain Answer Date R ecorded Do you have any trouble payi ng for your medications, or do you think you might in the future? No 11/13/2023 Does your family have troubl e paying for medicine? (Household - for ages 0-17 years) Not on file 11/13/2023 Transportation Needs Answer Date Record ed READ ONLY Do you have troubl e getting a ride to medical visits or work? Never True 11/13/2023 Does your family have a hard time getting a ride to doctors visits? (Household - for ages 0-17 years) Not on file 11/13/2023 Has lack of transportation k ept you from medical appointments, meetings, work, or from getting things needed for daily living? Check all that apply. (Adult - for ages 18 years and over) Not on file 11/13/2023 Do you (or your family) have trouble finding or paying for a ride (transportation)? (Household - for ages 0-17 years) Not on file 11/13/2023 Housing Stability Answer Date Recorded Do you currently live in a s helter or have no steady place to sleep at night? Yes 11/13/2023 READ ONLY Do you think you a re at risk of becoming homeless? No 11/13/2023 Does your family worry about paying for your home or becoming homeless? (Household - for ages 0-17 years) Not on file 0 11/13/2023 Are you homeless or worried that you might be in the future? (Adult - for ages 18 years and over) Not on file Are you (or your family) shandra eless or worried that you might be in the future? (Household - for ages 0-17 years) Not on file Food Insecurity Answer Date Recorded Do you need food for this week? No 11/13/2023 Are you able to get enough f ood for your family? (Household - for ages 0-17 years) Not on file 11/13/2023 Does your family need food t his week? (Household - for ages 0-17 years) Not on file 11/13/2023 Do you always have enough fo od for your family? (Household - for ages 0-17 years) Not on file 11/13/2023 Sex and Gender Information Value Date Recorded Sex Assigned at Female 09/25/2022 8:02 AM EST Gender Identity Female 09/25/2022 8:02 AM EST Sexual Orientation Straight 09/25/2022 8: 02 AM EST Job Start Date Occupation Industry Not on file Not on file Not on file documented as of this encounter Miscellaneous Notes * Telephone Encounter - Narayan Goodrich DO - 07/23/2024 4:54 PM EDT Updates noted, preoperative evaluation addressed in separate encounter with portal message sent to patient. Records sent to her orthopedist. Narayan Goodrich DO * Telephone Encounter - Emile Mckeon RN - 07/23/2024 11:33 AM EDT Called pt and spoke with pt Sunday am. Pat states she is feeling better and back to normal with noresidual. Awaiting news whether she can have her surgery based on findings. Emile Mckeon RN * Telephone Encounter - Emile Mckeon RN - 07/21/2024 1:24 PM EDT Called pt and spoke with Denys. Denys states symptoms "no worse". I asked if she has eaten anything yet, since she got a lot of Dobutamine and atropine and the study was over 90 minutes ago. He stated she hadn't eaten yet. I explained that we always advise people to eat CHERISE after a DSE, especially those patients who have received a lot of medication. Pt takes ongoing benedryl 25 mg and zyrte c every day for similar chronic concerns. I advised an extra 25 mg benedryl, and good lunch and a nap. Denys agrees with plan. Emile Mckeon, RN * Telephone Encounter - Awilda Wilkerson LPN - 07/21/2024 1:01 PM EDT Pt calling with pt present. Dobutamine stress echo today. Believes she is having allergic reaction to dobutamine from today's stress Itching feeling head to toe "inside and out," no hives. Denies difficulty breathing, denies chest tightness. Denies swelling of lips, face, tongue. Also having increased pain in hip that is due for replacement. Advised pt to await return call, but if symptoms worsen or become emergent, seek treatment at nearest emergency department. Agreed. documented in this encounter Plan of Treatment Upcoming Encounters Date Type Department Care Team (Late st Contact Info) Description 08/06/2024 2:00 PM EDT Office Visit Family Practice [facility] [place] [address] [place] [address] Juanita Jackson PA-C [address] [place] [address] [address] 10/14/2024 11:20 AM EST Office Visit Dermatology [facility] [address] [place] [place] [address] Alison Burnham PA-C [address] [place] [address] 01/09/2025 4:00 PM EDT Office Visit [facility] [address] [facility] [place] [address] Saman Almanza, DO [address] [facility] [place] [address] 07/23/2025 1:30 PM EDT Office Visit Cardiology, [facility] [address] [place] [address] Narayan Goodrich, DO [address] [place] [address] Scheduled Procedures Name Priority Associated Diagnoses Date/Ti [...] this encounter Medical Devices Implanted Type Area Showroom Salesperson Device Identifier Shelf Expiration Date Model / Serial / Lot Lens Intraoc 23.0 - [id number] - [id number] Implanted:Qty: 1 on 09/24/2020 by Tuan Doyle MD at OR [facility] Left: Eye [employer]CH [employer] LOMB 01/05/2025 [id number] / [id number] / [id number] Lens Intraoc 22.5 - [id number] - [id number] Implanted:Qty: 1 on 10/19/2020 by Tuan Doyle MD at OR [facility] Right: Eye BAUSCH & LOMB 04/06/2025 [id number] / [id number] / documented as of this encounter Advance Directives * Full Code (Latest Code Status on File) Date Activated Date Inactivated Comments 07/17/2016 3:47 PM 07/17/2016 10:33 PM This orde r reflects the patients wishes and were consensually agreed upon. Care Teams Cisco Network Architect Relationship Specialty Start Date End Date Saman Almanza DO [facility] [address] [place] [address] PCP - General Family Medicine 05/01/18 documented as of this encounter
--- OUTSIDE RECORDS SUMMARY | 2024-08-27 21:01 | External Medical Summary | Summary of Care ---
Author Name Unknown Organization [facility] Address [address] [place] [address] Phone [phone] Care Team Providers Care Graduate Student Name Role Phone Catracho Almanzae Perla BRADSHAW Primary Care Provider Encounter Details Date Type Department Care Team (Late st Contact Info) Description 08/04/2024 Orders Only Laboratory [facility] [address] [place] [address] Jammie Norwood, PA-C [address] [facility] [address] [place] [address] Primary osteoarthritis of both hips* Allergies Active Allergy Reactions Criticality Noted Date [...] 0.4 MG SL SUBLIndications:Palpi tations,Coronary atherosclerosis of [place] coronary artery 1 every 5 min as needed with chest pain up to 3 doses in 15 minutes 20 Tab 3 12/27/2011 Active Additional Information Patient not taking.Reported on 07/08/2024 ASPIRIN 81 MG PO TABS Take 1 Tablet by mouth at bedtime. Active CPAP every night at bedtime. Active [place]-3 1000 MG Oral Capsule Take by mouth. [...] exertion),Preoperativ e cardiovascular examination,Coronary artery disease involving [place] coronary artery of [place] heart without angina pectoris One tablet by [...] goal below 140/90,Diastolic dysfunction,Coronary artery disease involving [place] coronary artery of [place] heart without angina pectoris Take 1 Tablet [...] per HTN protocol #16. CORONARY ATHEROSCLER. 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 melanoma--lt lat thigh 1006/24/2002 10/30/2017 dysplastic compound nevus--lower back 06/24/2002 10/30/2017 [...] Description 08/06/2024 2:00 PM EDT Office Visit [facility] [address] [place] [address] Juanita Jackson PA-C [address] [place] [address] 10/14/2024 11:20 AM EST Office Visit Dermatology [facility] [address] [place] [address] Alison Burnham PA-C [address] [place] [address] 01/09/2025 4:00 PM EDT Office Visit [facility] [address] [place] [address] Saman Almanza, 200 [facility] [place] [address] 07/23/2025 1:30 PM EDT Office Visit Cardiology, [facility] [address] [place] [address] Narayan Goodrich, DO [address] [place] [address] Pending Results Name Type Priority Associated Diagnoses Date /Time URINALYSIS WITH MICROSCOPIC EXAM Lab Routine Primary osteoarthritis of both hips 08/04/2024 3:07 PM EDT Scheduled Orders Name Type Priority Associated Diagnoses Orde r Schedule URINALYSIS WITH MICROSCOPIC EXAM Lab Routine Primary osteoarthritis of both hips Expected: 08/04/2024, Expires: 08/04/2025 Scheduled Procedures Name Priority Associated Diagnoses Date/Ti [...] this encounter Medical Devices Implanted Type Area Funeral Director/Embalmer Device Identifier Shelf Expiration Date Model / Serial / Lot Lens Intraoc 23.0 - [id number] - [id number] Implanted:Qty: 1 on 09/24/2020 by Tuan Doyle MD at OR [facility] Left: Eye BAUSCH [employer] LOMB 01/05/2025 [id number] / [id number] / [id number] Lens Intraoc 22.5 - [id number] - [id number] Implanted:Qty: 1 on 10/19/2020 by Tuan Doyle MD at OR [facility] Right: Eye BAUSCH & LOMB 04/06/2025 [id number] / [id number] / documented as of this encounter Visit Diagnoses Diagnosis Primary osteoarthritis of both hips- Primary Primary localized osteoarthrosis, pelvic region and thigh documented in this encounter Advance Directives * Full Code (Latest Code Status on File) Date Activated Date Inactivated Comments 07/17/2016 3:47 PM 07/17/2016 10:33 PM This orde r reflects the patients wishes and were consensually agreed upon. Care Teams Graduate Student Relationship Specialty Start Date End Date Saman Almanza DO [address] [place] [address] PCP - General Family Medicine 05/01/18 documented as of this encounter
--- OUTSIDE RECORDS SUMMARY | 2024-08-27 21:01 | External Medical Summary | Summary of Care ---
Author Name Unknown Organization [facility] Address [address] [place] [address] Phone [phone] Care Team Providers Care Photographs Curator Name Role Phone Catracho Almanzae Perla BRADSHAW Primary Care Provider [phone] Reason for Visit * Reason Onset Date Comments Information 07/21/2024 Encounter Details Date Type Department Care Team (Late st Contact Info) Description 07/21/2024 Telephone Card[facility], [facility] [address] [place] [address] Narayan Goodrich, [address] [place] [address] Information Allergies Active Allergy Reactions Criticality Noted [...] 0.4 MG SL SUBLIndications:Palpi tations,Coronary atherosclerosis of [place] coronary artery 1 every 5 min as needed with chest pain up to 3 doses in 15 minutes 20 Tab 3 12/27/2011 Active Additional Information Patient not taking.Reported on 07/08/2024 ASPIRIN 81 MG PO TABS Take 1 Tablet by mouth at bedtime. Active CPAP every night at bedtime. Active [place]-3 1000 MG Oral Capsule Take by mouth. [...] exertion),Preoperativ e cardiovascular examination,Coronary artery disease involving [place] coronary artery of [place] heart without angina pectoris One tablet by [...] goal below 140/90,Diastolic dysfunction,Coronary artery disease involving [place] coronary artery of [place] heart without angina pectoris Take 1 Tablet [...] 1000 mcg/mLIndications:Preo perative cardiovascular examination,Atheroscle rosis of [place] coronary artery of [place] heart without angina pectoris,HTN, goal below 140/90,Dyslipidemia, [...] per HTN protocol #16. CORONARY ATHEROSCLER. 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 Pat states she is feeling better [...] Pt takes ongoing benedryl 25 mg and zyrtec every day for similar chronic concerns. I [...] Description 08/06/2024 2:00 PM EDT Office Visit [facility] [address] [place], [place] [address] Juanita Jackson PA-C [address] [place], [place] [address] 10/14/2024 11:20 AM EST Office Visit Dermatology [facility] [place] [address] [place], [place] [address] Alison Burnham PA-C [address] [place] [address] 01/09/2025 4:00 PM EDT Office Visit [facility] [address] [place] [address] Saman Almanza DO [address] [place] [address] 07/23/2025 1:30 PM EDT Office Visit [facility] [address] [place] [address] Narayan Goodrich, [address] [place] [address] Scheduled Procedures Name Priority Associated Diagnoses Date/Ti [...] this encounter Medical Devices Implanted Type Area Computing Services Director Device Identifier Shelf Expiration Date Model / Serial / Lot Lens Intraoc 23.0 - [id number] - [id number] Implanted:Qty: 1 on 09/24/2020 by Tuan Doyle MD at OR [facility] Left: Eye BAUSCH & LOMB 01/05/2025 [id number] / [id number] / [id number] Lens Intraoc 22.5 - [id number] - [id number] Implanted:Qty: 1 on 10/19/2020 by Tuan Doyle MD at OR [facility] Right: Eye BAUSCH & LOMB 04/06/2025 [id number] / [id number] / documented as of this encounter Advance Directives * Full Code (Latest Code Status on File) Date Activated Date Inactivated Comments 07/17/2016 3:47 PM 07/17/2016 10:33 PM This orde r reflects the patients wishes and were consensually agreed upon. Care Teams Photographs Curator Relationship Specialty Start Date End Date Saman Almanza DO [address] [place] [address] PCP - General Family Medicine 05/01/18 documented as of this encounter
--- OUTSIDE RECORDS SUMMARY | 2024-08-27 21:01 | External Medical Summary ---
Author Name Unknown Address Unknown Organization K09:[facility] [address] [place] [address] Laboratory Report Ordering Provider Test Date Status GWENDOLYN ALVARENGA 08/04/2024 15:07:35 Final Observation Date Value Abnormality Reference (Units ) Status Color of Urine by Auto 08/04/2024 15:07:35 Yellow Light Yellow, Yellow, Dark Yellow Final Clarity, Urine 08/04/2024 15:07:35 Clear Clear Final Glucose [Mass/volume] in Urine by Automated test strip 08/04/2024 15:07:35 Negative Negative (mg/dL) Final Bilirubin.total [Presence] in Urine by Automated test strip 08/04/2024 15:07:35 Negative Negative Final Ketones [Mass/volume] in Urine by Automated test strip 08/04/2024 15:07:35 Negative Negative (mg/dL) Final Specific gravity, Urine 08/04/2024 15:07:35 1.020 1.003-1.030 Final Hemoglobin [Presence] in Urine by Automated test strip 08/04/2024 15:07:35 Negative Negative Final pH, Urine 08/04/2024 15:07:35 5.5 5.0-7.5 (Units) Final Protein [Mass/volume] in Urine by Automated test strip 08/04/2024 15:07:35 Negative Negative (mg/dL) Final Urobilinogen [Mass/volume] in Urine by Automated test strip 08/04/2024 15:07:35 0.2 0.2, 1.0 (mg/dL) Final Nitrite [Presence] in Urine by Automated test strip 08/04/2024 15:07:35 Negative Negative Final Leukocyte esterase [Presence] in Urine by Automated test strip 08/04/2024 15:07:35 Trace Abnormal Negative Final RBC, Urine 08/04/2024 15:07:35 0-2 0-2 (/HPF) Final WBC, Urine 08/04/2024 15:07:35 3-5 Abnormal 0-2 (/HPF) Final Bacteria [#/area] in Urine sediment by Microscopy high power field 08/04/2024 15:07:35 0-25 0-25 (/HPF) Final Transitional cells [#/area] in Urine sediment by Microscopy high power field 08/04/2024 15:07:35 1-4 Abnormal None (/HPF) Final Performing Location [facility] [place] [address]
--- OUTSIDE RECORDS SUMMARY | 2024-08-27 21:01 | External Medical Summary | Summary of Care ---
Author Name Unknown Organization [facility] Address [address] [place] [address] Phone [phone] Care Team Providers Care Hand Stoner Name Role Phone Saman Almanza DO Primary Care Provider Reason for Visit * Reason Onset Date Comments Advice 07/23/2024 Encounter Details Date Type Department Care Team (Late st Contact Info) Description 07/23/2024 Telephone Cardiology, [facility] [address] [place] [address] Narayan Goodrich, [address] [place] [id number] Advice Allergies Active Allergy Reactions Criticality Noted Date Comments Adhesive Tape Itching Low 01/02/2001 Irritate skin Bacitracin Itching Low 01/02/2001 Irritate skin Cortisone Hypertension 05/26/2016 Diazepam Itching 02/17/2022 Severe systemic itch Dobutamine Itching 07/21/2024 Neosporin Itching Low 01/02/2001 Irritate Skin Oxycodone Itching 02/17/2022 Severe systemic itch Polymyxin B Itching Low 11/01/2023 Lisinopril Cough 11/12/2014 documented as of this encounter (statuses as of 07/24/2024) Medications Medication Sig Dispensed Refills Start Date End Date Status NITROGLYCERIN 0.4 MG SL SUBLIndications:Palpi tations,Coronary atherosclerosis of [place] coronary artery 1 every 5 min as needed with chest pain up to 3 doses in 15 minutes 20 Tab 3 12/27/2011 Active Additional Information Patient not taking.Reported on 07/08/2024 ASPIRIN 81 MG PO TABS Take 1 Tablet by mouth at bedtime. Active CPAP every night at bedtime. Active [place]-3 1000 MG Oral Capsule Take by mouth. [...] exertion),Preoperativ e cardiovascular examination,Coronary artery disease involving [place] coronary artery of [place] heart without angina pectoris One tablet by [...] goal below 140/90,Diastolic dysfunction,Coronary artery disease involving [place] coronary artery of [place] heart without angina pectoris Take 1 Tablet [...] as of this encounter (statuses as of 07/24/2024) Active Problems Problem Noted Date Diagnosed Date [...] per HTN protocol #16. CORONARY ATHEROSCLER. OF 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 melanoma--lt lat thigh 10/06/24/2002 10/30/2017 dysplastic compound nevus--lower back 06/24/2002 10/30/2017 seborrheic keratosis--sternu m , left arm 07/0806/24/2002 10/30/2017 Other acne 06/24/2002 10/30/2017 documented as of this encounter (statuses as of 07/24/2024) Immunizations Name Administration Dates Next Due COVID-19 [...] encounter Miscellaneous Notes * Telephone Encounter - Rose Sandy LPN - 07/23/2024 11:45 AM EDT Sent as per request * Telephone Encounter - Narayan Goodrich DO - 07/23/2024 8:50 AM EDT Cardiology nursing: Please print my recent progress note including the preoperative addendum which I have placed in the same encounter, as well as recent dobutamine stress echocardiogram report in the EKG tracing dated 07/08/2024 and fax to [facility], Dr. Cantrell. Stress test findings stable, okay from a cardiac perspective to proceed with Orthopedic Surgery without further cardiac testing. Narayan Goodrich DO documented in this encounter Plan of Treatment Upcoming Encounters Date Type Department Care Team (Late st Contact Info) Description 08/06/2024 2:00 PM EDT Office Visit Family Practice [facility] [address] [place] [address] Juanita Jackson PA-C [address] [place] [address] 10/14/2024 11:20 AM EST Office Visit Dermatology [facility] [place] [address] [place] [address] Alison Burnham PA-C [address] [place] [address] 01/09/2025 4:00 PM EDT Office Visit Family Practice [facility] [address] [facility] [place] [address] Saman Almanza, DO [address] [facility] [place] [address] 07/23/2025 1:30 PM EDT Office Visit Cardiology, [facility] [address] [place] [address] Narayan Goodrich, DO [address] [place] [id number] Scheduled Procedures Name Priority Associated Diagnoses Date/Ti [...] this encounter Medical Devices Implanted Type Area Returning Officer Device Identifier Shelf Expiration Date Model / Serial / Lot Lens Intraoc 23.0 - [id number] - [id number] Implanted:Qty: 1 on 09/24/2020 by Tuan Doyle MD at OR [facility] Left: Eye [employer] 01/05/2025 [id number] / [id number] / [id number] Lens Intraoc 22.5 - [id number] - [id number] Implanted:Qty: 1 on 10/19/2020 by Tuan Doyle MD at OR [facility] Right: Eye [employer] 04/06/2025 [id number] / [id number] / documented as of this encounter Advance Directives * Full Code (Latest Code Status on File) Date Activated Date Inactivated Comments 07/17/2016 3:47 PM 07/17/2016 10:33 PM This orde r reflects the patients wishes and were consensually agreed upon. Care Teams Hand Stoner Relationship Specialty Start Date End Date Saman Almanza DO [address] [place] [address] PCP - General Family Medicine 05/01/18 documented as of this encounter
[2024-08-28 06:46] LABS: Basophils # (auto) 0.02 K/uL (0.00-0.20); Basophils % (auto) 0.2 %; Hematocrit (blood only) 36.7 % (37.0-47.0); Hemoglobin 12.3 g/dl (12.0-16.0); Immature Granulocytes # (auto) 0.07 K/uL (0.01-0.20); Immature Granulocytes % (auto) 0.6 %; Lymphocytes # (auto) 0.64 K/uL (1.20-3.40); Lymphocytes % (auto) 5.1 %; Mean Corpuscular Hemoglobin 31.4 pg (25.0-34.0); Mean Corpuscular Hgb Conc 33.5 g/dL (32.0-36.0); Mean Corpuscular Volume 93.6 fL (80.0-100.0); Monocytes # (auto) 1.39 K/uL (0.11-0.59); Neutrophils % (auto) 83.1 %; Platelet Count 153 K/uL (130-400); RDW Coefficient of Variation 12.9 % (11.5-14.5); RDW Standard Deviation 44.2 fL (36.4-46.3); Red Blood Count 3.92 M/uL (4.20-5.40); White Blood Count 12.62 K/ul (4.8-10.8)
[2024-08-28 07:25] LABS: Calcium 8.4 mg/dl (8.6-10.3); Creatinine Clr Calc Pharmacy 50.3 ml/min; Potassium 4.6 mmol/L (3.5-5.1)
[2024-08-28 07:30] VITALS: BP 118/73; PULSE 68; RESP 16; O2SAT 98
--- NOTE | 2024-08-28 07:54 | Orthopedic Progress Note ---
Date of Service August 28, 2024 Assessment & Plan Admission and Anticipated Discharge Date Admission Date: August 27, 2024 Orthopedic Progress Note Postop day #1 status post left total replacement. Patient concerned about some discomfort in her thigh. I told her that is very typical where the incision is. She denies nausea vomiting chest pain shortness of breath fever chills. Vital signs are stable she is afebrile. A.m. labs are excellent. Wound dressing clean dry and intact. Neurovascular check from a set of nerve is normal calf nontender. Assessment doing well with by the numbers. Needs to get more energetic and she needs to be encouraged to be more energetic. She can be weightbearing as tolerated on her leg. Her films look excellent. DVT PE PE prophylaxis to begin today. Prepare for discharge today.
[2024-08-28] MEDS: POTASSIUM CHLORIDE 10 MEQ TABCR PO SCH (08:36)
[2024-08-28] MEDS: VITAMIN B COMPLEX TAB PO SCH (08:37)
[2024-08-28] MEDS: PANTOprazole 40 MG TAB PO SCH (08:37)
[2024-08-28] MEDS: DULoxetine HCL 20 MG CAP PO SCH (08:37)
[2024-08-28] MEDS: APIXABAN 2.5 MG TAB PO SCH (08:37)
[2024-08-28] MEDS: FLUoxetine HCL 20 MG CAP PO SCH (08:37)
[2024-08-28] MEDS: METOPROLOL TARTRATE 25 MG TAB PO SCH (08:37)
[2024-08-28] MEDS: CETIRIZINE HCL 10 MG TABLET PO SCH (08:37)
[2024-08-28] MEDS: MULTIVITAMIN TAB PO SCH (08:37)
[2024-08-28] MEDS: LOSARTAN POTASSIUM 50 MG TAB PO SCH (08:37)
[2024-08-28] MEDS ORDERED: NON-FORMULARY MEDICATION (Coenzyme Q10 [Coq-10] 100 mg Capsule) PO SCH (09:00)
[2024-08-28] MEDS: FUROSEMIDE 20 MG TAB PO SCH (09:47)
--- NOTE | 2024-08-28 10:56 | Orthopedic Progress Note ---
Date of Service August 28, 2024 Assessment & Plan (1) History of left hip replacement: Plan: The patient was educated regarding today's findings. Conservative care measures were discussed. Prevena wound VAC was placed on her left hip. It is healed well. She will see me in 1 week on 09/03 for wound VAC removal. Weight-bear as tolerated. She will use her walker for ambulation. Total hip precautions have been reviewed. Continue using the wedge pillow when sleeping. Ice the hip frequently to reduce pain and swelling. Prescriptions for Eliquis 2.5 mg twice daily and tramadol 50 mg every 6 hours were sent to her pharmacy. Written discharge instructions were provided. Call the office with any other concerns. Admission and Anticipated Discharge Date Admission Date: August 27, 2024 Subjective This 79-year-old female seen today in her room. She is 1 day status post left total hip arthroplasty. She states she is doing better now than she was yesterday. She had a rough afternoon and evening yesterday. She feels much better today. She is currently sitting in her bedside chair and has finished her breakfast. She feels ready to go home today. She already has home health established. She denies any chest pain, shortness of breath, nausea, vomiting, or abdominal pain. No additional complaints. Review of Systems Review of Systems: Unchanged from yesterday. Physical Exam Physical Exam: General: Well-developed, well-nourished, elderly female, in no acute distress. Sitting in a bedside chair. Alert and oriented. Skin: Warm dry with good turgor. No rashes. Postsurgical dressing is in place on the right hip. It is dry. No surrounding ecchymosis, edema, or erythema. Upon removal of her incisional dressing, there is scant dried blood on the inner aspect. No active bleeding from the hip at this time. [place] are intact. Wound edges are well-approximated. No erythema or warmth. No significant ecchymosis or edema yet. Musculoskeletal: The patient has intact motor function of her left hip, knee, and ankle. She is able to actively flex her hip and flex and extend her knee. She is able to rise from a chair and stands well with her walker. Motor function of the ankle and toes is intact and unremarkable. Neurologic: Gross sensation is intact across the left leg by soft touch. Peripheral pulses are 2+. Results & Data Vital Signs (Past 12 Hours) Vital Signs Temp Pulse Resp BP Pulse Ox O2 Del Method 08/28/24 07:29 36.8 C 68 16 118/73 98 Room Air 08/28/24 03:51 36.8 C 60 18 110/62 97 Room Air 08/27/24 23:07 36.8 C 72 18 108/65 96 Room Air Laboratory Results CBC obtained this morning shows a white count of 12.6. H&H of 12.3 and 36.7. Platelets are 153,000. PRP this morning shows sodium 143, potassium 4.6, chloride 108, CO2 29, BUN of 28 with creatinine 1.0. Glucose 141.
--- NOTE | 2024-08-29 09:32 | Coding Query ---
BMI To promote full compliance with coding requirements relating to patient care, physician participation is requested in all cases of box shook patcher uncertainty. Please assist us with the question(s) below: Per the operative report, "Again this is a very large patient with high BMI and moderate appropriate modifier for this should be utilized. This required both the fellow and the PA for appropriate retraction based on her size". If applicable, please check the box that provides a more specific associated diagnosis for the patient's elevated BMI: ( ) Overweight/Obese ( x) Obesity ( ) Morbid obesity ( ) Obesity Hypoventilation Syndrome (OHS) ( ) Heathy weight, not significant ( ) Underweight/Thin ( ) Other, please specify Thank you Jumana SEN
== END 2024-08-28 11:25 | disposition home health service (06) | DRG 470 ==
LOC: ASU 05:21 → 3E 09:04